=== PATIENT | male | born 1940 | race Caucasian/White ===

== ENCOUNTER 2023-02-16 | Inpatient (IN) | payer MEDICARE, OTHER, SELFPAY ==
[2023-02-16] VITALS (15 sets, daily range): BP systolic 107–141; BP diastolic 67–82; PULSE 60–90; RESP 14–22; TEMP 36.5–37.3; O2SAT 92–99
--- NOTE | 2023-02-16 00:04 | ECG_ITS ---
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 Measurements Intervals [place] Rate: 89 P: 0 CA: 0 QRS: 41 QRSD: 95 T: 78 QT: 349 QTc: 426 Interpretive Statements ATRIAL FIBRILLATION MODERATE ST DEPRESSION [0.05+ mV ST DEPRESSION] No previous ECG available for comparison Electronically Signed On 02-16-2023 10:13:50 CDT by Raul Berg M.D. [id number]
--- NOTE | 2023-02-16 00:04 | XRR_ITS ---
PROCEDURE INFORMATION: Exam: XR Chest Exam date and time: 02/16/2023 12:19 AM Age: 82 years old Clinical indication: Chest pressure; Patient HX: C/O chest pain; Additional info: Cp TECHNIQUE: Imaging protocol: Radiologic exam of the chest. Views: 1 view. COMPARISON: No relevant prior studies available. FINDINGS: Lungs: Mildly hyperaerated lungs consistent with deep inspiratory effort vs reactive airway disease vs mild COPD . Pleural spaces: Unremarkable. No pleural effusion. No pneumothorax. Heart/Mediastinum: Unremarkable. No cardiomegaly. Bones/joints: Unremarkable. XR/XR chest 1V portable [id number] IMPRESSION: Mildly hyperaerated lungs consistent with deep inspiratory effort vs reactive airway disease vs mild COPD .
--- NOTE | 2023-02-16 00:12 | ED_ITS ---
HPI - Chest Pain General: Chief Complaint: Chest Pain Stated Complaint: CP Time Seen by Provider: 02/16/23 00:04 History of Present Illness: 82-year-old gentleman with a history of atrial fibrillation, but no prior history of coronary disease. Who presents with chest discomfort. He notes that he had discomfort on and off for the past 5 days or so. He presented to an outside facility last night with similar symptoms, and was discharged. He was told he should have a stress test at some point. Tonight, after returning home from dinner, he began to get pain at rest. He tried to go to bed, but pain did not decrease at all with rest, and began to worry him so he came to the e mergency department. He was given nitroglycerin x2 by EMS in route, with resolution of his pain. He has no pain now. He states that he has had a stress test a long time ago that was negative but none recently. No history of angiogram. MD complaint: chest pain Pertinent past history: other Onset (ago): hour(s) Timing of current episode: episodic Prior episodes: Yes Onset: during rest Pain location: substernal Pain radiation: none Quality: aching Relieving factors: nitroglycerin Exacerbating factors: exertion Context: other Associated symptoms: Reports dyspnea and nausea; Deny abdominal pain, diaphoresis, fever(s), leg edema or vomiting Treatment prior to arrival: nitroglycerin Review of Systems Const: Denies: fever(s) or diaphoresis Eyes: Denies: change in vision ENMT: Denies: throat pain Card: Reports: chest pain Resp: Reports: dyspnea GI: Reports: nausea; Denies: abdominal pain or vomiting Musc: Reports: neck pain Physical Exam Const: COMMON NORMALS: no acute distress GENERAL APPEARANCE: cooperative; not ill appearing and not frail appearing HENMT: COMMON NORMALS: normocephalic, atraumatic and Normal external nose present HEAD & SCALP: normocephalic and atraumatic FACE & SINUS: normal facial exam and face symmetric NOSE: Normal external nose present Eye: COMMON NORMALS: Equal, round and reactive pupils present and EOMs intact bilaterally PUPIL: Yes Equal, round and reactive pupils present Neck/C-Spine: GENERAL: Yes trachea midline Chest: CHEST: Yes Symmetrical chest wall rise Resp: COMMON NORMALS: normal respiratory effort, No retractions, No use of accessory muscles and clear to auscultation bilaterally AUSCULTATION: clear to auscultation bilaterally Cardio: COMMON NORMALS: regular rate and regular rhythm RATE: regular rate RHYTHM: regular rhythm GI: COMMON NORMALS: Normal to inspection, nondistended, normoactive bowel sounds present Extremity: COMMON NORMALS: no pedal edema Neuro: ISAAC COMA SCALE: document GCS findings [place] coma scale eye opening: Spontaneous [place] coma scale verbal response: Orientated Isaac coma scale motor response: Obey commands [place] coma scale total score: 15 S ENSORY EXAM: Yes extremities (intact) Psych: COMMON NORMALS: speech normal SPEECH: Yes normal speech Skin: COMMON NORMALS: no rashes or lesions noted GENERAL SKIN EXAM: no rashes or lesions noted Course Vital Signs: Vital signs: Vital Signs Temperature 97.7 F 02/16/23 00:00 Pulse Rate 73 02/16/23 01:50 Respiratory Rate 16 02/16/23 01:50 Blood Pressure 113/74 02/16/23 01:50 Pulse Oximetry 97 02/16/23 01:50 Oxygen Delivery Me thod Room Air 02/16/23 00:39 MDM - Chest Pain Medical Decision Making Chest pain is still resolved. Patient is resting comfortably. Heart rate 90, blood pressure 97/62, saturations 98% on room air. EKG shows atrial fibrillat ion with a normal axis. Rate is 90. There is some ST depression laterally. Potassium is 3.3 and is repleted. Chest x-ray shows mildly hyperinflated lungs. The patient's delta troponin is 15 which is concerning given his chest pain and relief with nitroglycerin. The patient is fully anticoagulated on Eliquis, so Lovenox will not be necessary. He was given Plavix and aspirin in the emergency department. He will be observed. Hospitalist will see the patient. Lab Data 02/16/23 00:20 02/16/23 00:20 Radiology Impressions Chest X-Ray 02/16/23 00:04 IMPRESSION: Mildly hyperaerated lungs consistent with deep inspiratory effort vs reactive airway disease vs mild COPD . Laboratory Results WBC 10.3 10^3/uL (4.0-10.0) H 02/16/23 00:20 RBC 3.38 10^6/uL (4.1-5.3) L 02/16/23 00:20 Hgb 11.3 g/dL (11.7-16.6) L 02/16/23 00:20 Hct 33.5 % (42.0-52.0) L 02/16/23 00:20 MCV 99.1 fl (80-94) H 02/16/23 00:20 MCH 33.4 pg (28.0-34.0) 02/16/23 00:20 MCHC 33.7 g/dL (30.0-36.0) 02/16/23 00:20 RDW 14.2 % (12.1-15.1) 02/16/23 00:20 Plt Count 238 10^3/cmm (130-400) 02/16/23 00:20 MPV 12.2 fL (7.4-10.4) H 02/16/23 00:20 Neut % (Auto) 59.1 % 02/16/23 00:20 Lymph % (Auto) 23.6 % 02/16/23 00:20 Coleman % (Auto) 7.8 % 02/16/23 00:20 Eos % (Auto) 7.7 % 02/16/23 00:20 Baso % (Auto) 0.6 % 02/16/23 00:20 Neut # (Auto) 6.08 10^3/uL (1.8-7.7) 02/16/23 00:20 Lymph # (Auto) 2.4 10^3/uL (0.8-4.8) 02/16/23 00:20 Coleman # (Auto) 0.8 10^3/uL (0.2-0.9) 02/16/23 00:20 Eos # (Auto) 0.8 10^3/uL (0.0-0.8) 02/16/23 00:20 Baso # (Auto) 0.1 10^3/uL (0.0-0.1) 02/16/23 00:20 Nucleated RBC % (auto) 0 % 02/16/23 00:20 Nucleated RBCs # 0.0 /100WBC 02/16/23 00:20 Sodium 143 mmol/L (136-145) 02/16/23 00:20 Potassium 3.3 mmol/L (3.5-5.1) L 02/16/23 00:20 Chloride 106 mmol/L (98-107) 02/16/23 00:20 Carbon Dioxide 24 mmol/L (22-29) 02/16/23 00:20 Anion Gap 16.3 (5-19) 02/16/23 00:20 BUN 28 mg/dL (8-23) H 02/16/23 00:20 Creatinine 1.2 mg/dL (0.7-1.2) 02/16/23 00:20 GFR Calculation Not Reportable 02/16/23 00:20 Glucose 114 mg/dL (65-115) 02/16/23 00:20 Calculated Osmolality 302 mOsm/kg (285-295) H 02/16/23 00:20 Calcium 8.2 mg/dL (8.5-10.5) L 02/16/23 00:20 Total Bilirubin 0.5 mg/dL (0.15-1.2) 02/16/23 00:20 AST 19 U/L (0-40) 02/16/23 00:20 ALT 12 U/L (0-41) 02/16/23 00:20 Alkaline Phosphatase 61 U/L (40-130) 02/16/23 00:20 Troponin T Baseline 25 ng/L (0-15) H 02/16/23 00:20 Troponin T 120 Minute 40.21 ng/L (0-15) H 02/16/23 01:56 Delta Troponin T 15.21 ABS# (0-10) H* 02/16/23 01:56 NT-Pro-B Natriuret Pep 379 pg/mL (0-450) 02/16/23 00:20 Total Protein 5.7 g/dL (6.6-8.7) L 02/16/23 00:20 Albumin 3.5 g/dL (3.5-5.2) 02/16/23 00:20 Globulin 2.2 g/dL (1.3-4.6) 02/16/23 00:20 Discharge Plan Discharge Patient Disposition: Placed in Observation Clinical Impression: Chest pain, Non-ST elevated myocardial infarction (non-STEMI), Atrial fibrillation Coding Level of Care Code ED Flight Attendant for Ximena Cook
[2023-02-16 00:47] LABS: Basophils # 0.1 10^3/uL (0.0-0.1); Basophils % 0.6 %; Eosinophils # 0.8 10^3/uL (0.0-0.8); Eosinophils % 7.7 %; Hematocrit 33.5 % (42.0-52.0); Hemoglobin 11.3 g/dL (11.7-16.6); Lymphocytes # 2.4 10^3/uL (0.8-4.8); Lymphocytes % 23.6 %; Mean Corpuscular HGB Conc 33.7 g/dL (30.0-36.0); Mean Corpuscular Hemoglobin 33.4 pg (28.0-34.0); Mean Corpuscular Volume 99.1 fl (80-94); Mean Platelet Volume 12.2 fL (7.4-10.4); Monocytes # 0.8 10^3/uL (0.2-0.9); Monocytes % 7.8 %; Neutrophils # 6.08 10^3/uL (1.8-7.7); Neutrophils % 59.1 %; Nucleated Red Blood Cells % 0 %; Platelet Count 238 10^3/cmm (130-400); Red Blood Count 3.38 10^6/uL (4.1-5.3); Red Cell Distribution Width 14.2 % (12.1-15.1); White Blood Count 10.3 10^3/uL (4.0-10.0)
[2023-02-16 00:51] LABS: Troponin(5th) Baseline 25 ng/L (0-15)
[2023-02-16 01:00] LABS: Alanine Aminotransferase 12 U/L (0-41); Albumin Level 3.5 g/dL (3.5-5.2); Alkaline Phosphatase 61 U/L (40-130); Anion Gap 16.3 (5-19); Aspartate Amino Transferase 19 U/L (0-40); Blood Urea Nitrogen 28 mg/dL (8-23); Calcium 8.2 mg/dL (8.5-10.5); Carbon Dioxide 24 mmol/L (22-29); Chloride 106 mmol/L (98-107); Globulin 2.2 g/dL (1.3-4.6); Glucose 114 mg/dL (65-115); NT Pro B Type Natriuretic Pept 379 pg/mL (0-450); Osmolality Calculated 302 mOsm/kg (285-295); Potassium 3.3 mmol/L (3.5-5.1); Sodium 143 mmol/L (136-145); Total Bilirubin 0.5 mg/dL (0.15-1.2); Total Protein 5.7 g/dL (6.6-8.7)
--- NOTE | 2023-02-16 02:04 | ECG_ITS ---
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 Measurements Intervals [place] Rate: 67 P: 0 [place]: 0 QRS: 63 QRSD: 96 T: 81 QT: 373 QTc: 394 Interpretive Statements ATRIAL FIBRILLATION MODERATE ST DEPRESSION [0.05+ mV ST DEPRESSION] Compared to ECG 02/16/2023 00:04:52 No significant changes Electronically Signed On 02-16-2023 10:14:16 CDT by Raul Berg M.D. [id number]
[2023-02-16 02:16] LABS: Troponin 5 2HR 40.21 ng/L (0-15)
[2023-02-16 02:25] LABS: Troponin 5 2HR Delta 15.21 ABS# (0-10)
[2023-02-16] MEDS: potassium chloride ER 20 mEq Tablet 40 MEQ PO (02:44)
[2023-02-16] MEDS: clopidogrel 300 mg Tablet PO (03:16)
[2023-02-16] MEDS: aspirin 325 mg Tablet PO ×2 (03:16→14:10)
--- NOTE | 2023-02-16 03:38 | USCV_ITS ---
Brian Chavez Age: 82 Gender: M : 1940 Exam Date: 02/16/2023 14:02 Ordering Phys: Coby Chase MD Technologist: DINA [place] [facility] [place]: nstemi BP: / HR: 56 Rhythm: Sinus Technical Quality: Adequate MEASUREMENTS (Male / Female) Normal Values 2D ECHO LV Diastolic Diameter PLAX 5.9 cm 4.2 - 5.9 / 3.9 - 5.3 cm LV Systolic Diameter PLAX 3.8 cm IVS Diastolic Thickness 0.9 cm 0.6 - 1.0 / 0.6 - 0.9 cm IVS Systolic Thickness 1.0 cm LVPW Diastolic Thickness 0.7 cm 0.6 - 1.0 / 0.6 - 0.9 cm LVPW Systolic Thickness 1.1 cm LVOT Diameter 2.3 cm LV Ejection Fraction 2D Teich 63.9 % LV Ejection Fraction MOD 2C 36.5 % LV Ejection Fraction 2C AL 35.6 % LA Diameter 4.3 cm M-MODE Aortic Annulus Diameter 3.5 cm LA Ao Ratio MM 1.3 MV E Point Septal Separation 0.7 cm DOPPLER AV Peak Velocity 116.0 cm/s LVOT Peak Velocity 69.0 cm/s AV Area Cont Eq vti 2.7 cm squared AV Area Cont Eq pk 2.5 cm squared MV Area PHT 6.9 cm squared Mitral E to A Ratio 2.4 MV E' Velocity 54.0 cm/s Mitral E to MV E' Ratio 8.2 Mitral E to LV E' Lateral Ratio 8.0 Mitral E to LV E' Septal Ratio 8.6 TR Peak Velocity 218.7 cm/s TR Peak Gradient 19.1 mmHg TV Peak E Velocity 65.0 cm/s Right Atrial Pressure 6.0 mmHg Pulmonary Artery Systolic Pressu 25.1 mmHg PV Peak Velocity 73.0 cm/s FINDINGS Left Ventricle Left ventricle is normal in size. LV systolic function is normal with EF 55-60%. No regional wall motion abnormalities are seen Right Ventricle Normal in size and function Right Atrium Normal in size Left Atrium Dilated Mitral Valve Structurally normal mitral valve.Trace mitral regurgitation. Aortic Valve Structurally normal aortic valve. No significant stenosis or regurgitation. Tricuspid Valve Mild tricuspid regurgitation. Insufficient TR jet to calculate RVSP Pulmonic Valve Not well visualized Pericardium Normal Aorta Normal in size IVC Appears to be normal CONCLUSIONS LV systolic function is normal with EF of 55 to 60%. Left atrial dilation Trace mitral regurgitation Mild tricuspid regurgitation No comparison studies are available Raul Berg MD (Electronically Signed) Final Date: 17 February 2023 08:38 S
--- NOTE | 2023-02-16 03:45 | PM.HP ---
Providers/Chief Complaint Admitting Physician: Coby Chase MD Primary Care Provider: Eddie Colon MD Chief Complaint: CP History of Present Illness Brian Chavez is a 82 year old male with a past medical history of hypertension, A-fib, currently on Eliquis, presented to the emergency room with 1 week of intermittent chest pain. Patient states he first noticed his chest pain 1 week ago with some minimal exertion. Chest pain was felt as a central pressure, located in the middle of the chest, nonradiating, no associated symptoms, 7/10 intensity at its peak. Rest appears to relieve his pain. This has been happening intermittently with exertion over the past 1 week. He does not have a past history of CAD. He had a stress test several years ago which was essentially normal. He presented to outside hospital yesterday for similar complaints and was discharged after their initial evaluation. He was asked to undergo a stress test order urgently. Today his pain continued to intensify so he came to the ER again. He received nitroglycerin x2 via EMS which caused relief of the pain. Review of Systems General: Reports: 10 or more systems reviewed and unremarkable except in HPI and below Const: Denies: fever(s), chills or body aches Eyes: Denies: change in vision, blurry vision or photophobia ENMT: Reports: hoarseness; Denies: throat pain, enlarged tonsils, odynophagia or nasal congestion Card: Denies: chest pain, palpitations, irregular heart rhythm, edema, swelling of feet/ankles, lightheadedness, pre-syncope, dyspnea on exertion or orthopnea Resp: Denies: dyspnea, productive cough, non-productive cough, wheezing, stridor, pain on inspiration, change in phlegm color, hemoptysis or chest congestion GI: Denies: abdominal pain, nausea, vomiting, hematemesis, coffee ground emesis, dysphagia, heartburn, diarrhea, constipation, GI cramping, change in stool character, hematochezia or melena : Denies: flank pain, dysuria, urinary frequency, urinary urgency, urinary hesitancy or hematuria Musc: Denies: neck pain, back pain, extremity pain, joint swelling, joint warmth or deformity Neuro: Denies: headache(s), numbness in extremities, weakness in extremities, sensory changes, difficulty walking, frequent falls, dizziness, vertigo, behavioral changes, Slurred speech present or seizure-like activity Psych: Denies: anxiety, depression, suicidal ideation or homicidal ideation Endo: Denies: polyuria, polydipsia, tired all the time, cold intolerance or hot flashes Blake/Lymph: Denies: easy bruising or easy bleeding Medications/Allergies Home Medications Medication Instructions Recorded Confirmed Last Taken Type apixaban 5 mg tablet (Eliquis) 5 mg PO BID 02/16/23 02/16/23 Unknown History cetirizine 10 mg tablet 10 mg PO DAILY 02/16/23 02/16/23 Unknown History diltiazem HCl 360 mg 360 mg PO BEDTIME 02/16/23 02/16/23 Unknown History capsule,extended release 24 hr dorzolamide 22.3 mg-timolol 6.8 1 drp ophthalmic (eye) DAILY 02/16/23 02/16/23 Unknown History mg/mL eye drops hydrochlorothiazide 12.5 mg capsule 12.5 mg PO DAILY 02/16/23 02/16/23 Unknown History ibuprofen 200 mg tablet 200 mg PO Q6H PRN Pain 02/16/23 02/16/23 Unknown History irbesartan 150 mg tablet 150 mg PO BEDTIME 02/16/23 02/16/23 Unknown History lansoprazole 15 mg capsule,delayed 15 mg PO DAILY 02/16/23 02/16/23 Unknown History release (Prevacid 24Hr) latanoprost 0.005 % eye drops 1 drp ophthalmic (eye) BEDTIME 02/16/23 02/16/23 Unknown History multivit,Ca,min-iron 8 mg-folic 1 tab PO DAILY 02/16/23 02/16/23 Unknown History acid 200 mcg-lycopene 600 mcg tablet (Centrum Men) ondansetron 4 mg disintegrating 4 mg PO Q8H PRN Nausea 02/16/23 02/16/23 Unknown History tablet potassium chloride 10 mEq 20 meq PO DAILY 02/16/23 02/16/23 Unknown History capsule,extended release terazosin 10 mg capsule 10 mg PO DAILY 02/16/23 02/16/23 Unknown History tramadol 50 mg tablet 50 mg PO DAILY PRN Pain 02/16/23 02/16/23 Unknown History vit C 250 mg-vit E 90 mg-zinc 40 1 cap PO DAILY 02/16/23 02/16/23 Unknown History mg-copper 1 [id number] capsule (PreserVision AREDS-2) Allergies Allergy/AdvReac Type Severity Reaction Status Date / Time No Known Allergies Allergy Verified 02/16/23 00:06 Vitals/I&O/Wt Last Vital Signs Temp 97.8 F 02/16/23 03:37 Pulse 65 02/16/23 03:37 Resp 18 02/16/23 03:37 BP 120/67 02/16/23 03:37 Pulse Ox 99 02/16/23 03:37 O2 Del Method Room Air 02/16/23 03:37 Weight last 48 hrs Weight 81.647 kg Physical Exam Narrative: General: No acute distress, AO x3 HEENT: PERRLA, pupils bilaterally equal and reactive, pallors not present Chest: Normal vesicular breath sounds, no added sounds, equal good air entry bilaterally CVS: S1-S2 regular, no murmurs, no tachycardia, no gallops, no rubs Abdomen: Soft, nontender, no organomegaly, bowel sounds present Neuro: No focal deficits, no facial deformity, AO x3, power 5/5 in all limbs Data 02/16/23 00:20 02/16/23 00:20 A&P Assessment and plan (1) Non-ST elevated myocardial infarction (non-STEMI): Patient presenting today with intermittent chest pain over the past week which is concerning for anginal type chest pain. EKG shows a baseline A-fib which is currently rate controlled, mild ST depression in leads V4 through V6. Baseline troponin is at 25, trending up at 2 hours to 40 with a delta of 15. He received nitroglycerin via EMS which appears to have relieved his chest pain. Currently he has no pain while laying in bed. Admit patient to CSU, continuous telemetry monitoring Start Lovenox 1 mg/kg every 24 hours Hold Eliquis in case patient needs to proceed to [employer], last dose was taken Friday evening. He has received aspirin 325 mg, will continue with 81 mg p.o. daily. Add atorvastatin 40 mg p.o. daily Check echocardiogram. Cardiology consult. N.p.o. for now while pending 6-hour troponin trend. (2) Atrial fibrillation: Currently rate controlled Continue home dose of Cardizem ER 360 mg daily Eliquis on hold as above Attestations Medical Necessity Statement*: Anticipate greater than 2 midnight stay for the evaluation of management of NSTEMI Coding Level of Care Code Acute Code for [facility] Diagnoses Non-ST elevated myocardial infarction (non-STEMI) I21.4 Atrial fibrillation I48.91
[2023-02-16] MEDS: enoxaparin 80 mg/0.8 mL Syringe SUBCUT ×2 (05:51→17:14)
--- NOTE | 2023-02-16 06:04 | ECG_ITS ---
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 Measurements Intervals [place] Rate: 61 P: 0 [place]: 0 QRS: 55 QRSD: 93 T: 81 QT: 379 QTc: 382 Interpretive Statements ATRIAL FIBRILLATION MODERATE ST DEPRESSION [0.05+ mV ST DEPRESSION] Compared to ECG 02/16/2023 04:16:06 No significant changes Electronically Signed On 02-16-2023 10:14:07 CDT by Raul Berg M.D. [id number]
[2023-02-16 07:48] LABS: Troponin 5 6HR 71.41 ng/L (0-15)
[2023-02-16 08:03] LABS: Troponin 5 6HR Delta 46.41 ng/L (0-12)
--- NOTE | 2023-02-16 08:10 | PM.CONSULT ---
Providers/Reason For Consult Consulting Physician/Specialty*: Raul Berg MD/ Cardiology Reason for Consult*: NSTEMI Requesting Physician: Dr Chase Attending Physician: Coby Chase MD Primary Care Provider: Eddie Colon MD History of Present Illness History of Present Illness Brian Chavez is a 82 year old male with past medical history of atrial fibrillation on Eliquis, hypertension who presented to hospital with 2 weeks of on and off chest pain that worsened yesterday. He was found to have elevated troponin with baseline of 25 trending up to 71 at 6 hours. EKG shows atrial fibrillation with minimal diffuse ST depressions. No active chest pain. Review of Systems General: Reports: 10 or more systems reviewed and unremarkable except in HPI and below Const: Denies: fever(s), chills or body aches Eyes: Denies: change in vision, blurry vision or photophobia ENMT: Reports: hoarseness; Denies: throat pain, enlarged tonsils, odynophagia or nasal congestion Card: Reports: chest pain; Denies: palpitations, irregular heart rhythm, edema, swelling of feet/ankles, lightheadedness, pre-syncope, dyspnea on exertion or orthopnea Resp: Denies: dyspnea, productive cough, non-productive cough, wheezing, stridor, pain on inspiration, change in phlegm color, hemoptysis or chest congestion GI: Denies: abdominal pain, nausea, vomiting, hematemesis, coffee ground emesis, dysphagia, heartburn, diarrhea, constipation, GI cramping, change in stool character, hematochezia or melena : Denies: flank pain, dysuria, urinary frequency, urinary urgency, urinary hesitancy or hematuria Musc: Denies: neck pain, back pain, extremity pain, joint swelling, joint warmth or deformity Neuro: Denies: headache(s), numbness in extremities, weakness in extremities, sensory changes, difficulty walking, frequent falls, dizziness, vertigo, behavioral changes, Slurred speech present or seizure-like activity Psych: Denies: anxiety, depression, suicidal ideation or homicidal ideation Endo: Denies: polyuria, polydipsia, tired all the time, cold intolerance or hot flashes Blake/Lymph: Denies: easy bruising or easy bleeding Medications/Allergies Home Medications Medication Instructions Recorded Confirmed Last Taken Type apixaban 5 mg tablet (Eliquis) 5 mg PO BID 02/16/23 02/16/23 Unknown History cetirizine 10 mg tablet 10 mg PO DAILY 02/16/23 02/16/23 Unknown History diltiazem HCl 360 mg 360 mg PO BEDTIME 02/16/23 02/16/23 Unknown History capsule,extended release 24 hr dorzolamide 22.3 mg-timolol 6.8 1 drp ophthalmic (eye) DAILY 02/16/23 02/16/23 Unknown History mg/mL eye drops hydrochlorothiazide 12.5 mg capsule 12.5 mg PO DAILY 02/16/23 02/16/23 Unknown History ibuprofen 200 mg tablet 200 mg PO Q6H PRN Pain 02/16/23 02/16/23 Unknown History irbesartan 150 mg tablet 150 mg PO BEDTIME 02/16/23 02/16/23 Unknown History lansoprazole 15 mg capsule,delayed 15 mg PO DAILY 02/16/23 02/16/23 Unknown History release (Prevacid 24Hr) latanoprost 0.005 % eye drops 1 drp ophthalmic (eye) BEDTIME 02/16/23 02/16/23 Unknown History multivit,Ca,min-iron 8 mg-folic 1 tab PO DAILY 02/16/23 02/16/23 Unknown History acid 200 mcg-lycopene 600 mcg tablet (Centrum Men) ondansetron 4 mg disintegrating 4 mg PO Q8H PRN Nausea 02/16/23 02/16/23 Unknown History tablet potassium chloride 10 mEq 20 meq PO DAILY 02/16/23 02/16/23 Unknown History capsule,extended release terazosin 10 mg capsule 10 mg PO DAILY 02/16/23 02/16/23 Unknown History tramadol 50 mg tablet 50 mg PO DAILY PRN Pain 02/16/23 02/16/23 Unknown History vit C 250 mg-vit E 90 mg-zinc 40 1 cap PO DAILY 02/16/23 02/16/23 Unknown History mg-copper 1 [id number] capsule (PreserVision AREDS-2) Allergies Allergy/AdvReac Type Severity Reaction Status Date / Time No Known Allergies Allergy Verified 02/16/23 00:06 Vitals/I&O/Wt Last Vital Signs Temp 97.9 F 02/16/23 07:36 Pulse 80 02/16/23 07:36 Resp 16 02/16/23 07:36 BP 136/78 02/16/23 07:36 Pulse Ox 98 02/16/23 07:36 O2 Del Method Room Air 02/16/23 07:36 02/15/23 02/16/23 02/16/23 22:59 06:59 14:59 Intake Total 800 / 800 Balance 800 / 800 Weight last 48 hrs Weight 180 lb Physical Exam Narrative: GENERAL: Patient is alert, awake and oriented x3. [] NECK: No jugular vein distension. [] HEENT: No cyanosis. No icterus. No pallor. [] HEART: Regular S1 and S2. No murmur, rub or gallop. [] LUNGS: Clear to auscultate bilaterally. [] CENTRAL NERVOUS SYSTEM: Grossly nonfocal. [] EXTREMITIES: Lower extremities with no edema Data 02/17/23 03:52 02/17/23 03:52 A&P Assessment and plan (1) Non-ST elevated myocardial infarction (non-STEMI): (2) Atrial fibrillation: Plan Patient has presented with non-ST elevation IN. We will proceed with coronary angiogram with possible percutaneous coronary intervention. His last dose of Eliquis was yesterday, we will wait till tomorrow. N.p.o. past midnight. Continue aspirin. Continue anticoagulation with Lovenox. Order echocardiogram. Thank you for involving us with care of this patient. We will continue to follow. Please call with questions. Consult Attestations Medical Necessity Statement: Care expected to cross 2 midnights. Coding Level of Care Code Acute Code for [facility] Diagnoses Non-ST elevated myocardial infarction (non-STEMI) I21.4 Atrial fibrillation I48.91
[2023-02-16] MEDS: pantoprazole DR 40 mg Tablet PO (09:27)
[2023-02-16] MEDS: atorvastatin 40 mg Tablet PO (09:28)
[2023-02-16] MEDS: terazosin 5 mg Capsule 10 MG PO (09:28)
[2023-02-16] MEDS: aspirin 81 mg EC Tablet PO (09:28)
--- NOTE | 2023-02-16 16:33 | P.PN_ITS ---
Subjective Subjective: Patient was seen this morning, family was at bedside, cardiology at bedside, spoke to cardiology, spoke to patient, patient denies any chest pain this morning, plans on coronary angiography tomorrow Vitals/I&O/Wt Last Vital Signs Temp 97.9 F 02/16/23 11:06 Pulse 60 02/16/23 15:58 Resp 16 02/16/23 15:58 BP 123/70 02/16/23 15:58 Pulse Ox 96 02/16/23 15:58 O2 Del Method Room Air 02/16/23 15:58 02/16/23 02/16/23 02/16/23 06:59 14:59 22:59 Intake Total 800 / 800 Balance 800 / 800 Weight last 48 hrs Weight 81.647 kg Physical Exam Const: COMMON NORMALS: no acute distress and patient oriented x3 Resp: COMMON NORMALS: normal respiratory effort, No retractions, No use of accessory muscles and clear to auscultation bilaterally AUSCULTATION: clear to auscultation bilaterally Cardio: COMMON NORMALS: regular rate, regular rhythm, S1 normal heart sound present and S2 normal heart sound present RATE: regular rate RHYTHM: regular rhythm HEART SOUNDS: S1 normal heart sound present and S2 normal heart sound present GI: COMMON NORMALS: Normal to inspection, nondistended, normoactive bowel so unds present, Soft to palpation and non-tender PALPATION: Yes Soft to pal pation Extremity: COMMON NORMALS: no pedal edema Neuro: COMMON NORMALS: patient oriented x3 Psych: COMMON NORMALS: mental status grossly normal Data 02/16/23 00:20 02/16/23 00:20 A&P Assessment and plan (1) Non-ST elevated myocardial infarction (non-STEMI): Patient presenting today with intermittent chest pain over the past week which is concerning for anginal type chest pain. EKG shows a baseline A-fib which is currently rate controlled, mild ST depression in leads V4 through V6. Baseline troponin is at 25, trending up at 2 hours to 40 with a delta of 15. 6- hour of 71, delta 46 He received nitroglycerin via EMS which appears to have relieved his chest pain. Currently chest pain-free Admit patient to CSU, continuous telemetry monitoring Continue Lovenox 1 mg/kg every 24 hours Hold Eliquis resume on discharge He has received aspirin 325 mg, will continue with 81 mg p.o. daily. Add atorvastatin 40 mg p.o. daily Check echocardiogram. Cardiology consult. N.p.o. midnight for cardiac cath tomorrow morning (2) Atrial fibrillation: Currently rate controlled Continue home dose of Cardizem ER 360 mg daily Eliquis on hold as above Plan Plan for today monitor for chest pain monitor quality assurance monitor final clinically, plan for cardiac catheterization tomorrow morning, spoke to patient, spoke to , spoke to nursing staff, spoke to cardiology Attestations Medical Necessity Statement*: Patient requires hospitalization for NSTEMI, plans on coronary angiography Diagnoses Non-ST elevated myocardial infarction (non-STEMI) I21.4 Atrial fibrillation I48.91
[2023-02-16] MEDS: dilTIAZem ER (24HR) 180 mg Capsule 360 MG PO (20:03)
[2023-02-16] MEDS: morphine 4 mg/mL SDV 1 mL 2 MG IVP (21:30)
[2023-02-17] VITALS (9 sets, daily range): BP systolic 130–150; BP diastolic 68–96; PULSE 61–84; RESP 16–24; TEMP 36.8; O2SAT 90–97
[2023-02-17 04:40] LABS: Basophils # 0.1 10^3/uL (0.0-0.1); Basophils % 0.7 %; Eosinophils # 0.9 10^3/uL (0.0-0.8); Eosinophils % 8.4 %; Hematocrit 32.1 % (42.0-52.0); Lymphocytes # 2.8 10^3/uL (0.8-4.8); Lymphocytes % 27.3 %; Mean Corpuscular HGB Conc 34.3 g/dL (30.0-36.0); Mean Corpuscular Hemoglobin 34.2 pg (28.0-34.0); Mean Corpuscular Volume 99.7 fl (80-94); Mean Platelet Volume 12.5 fL (7.4-10.4); Monocytes # 0.9 10^3/uL (0.2-0.9); Monocytes % 8.6 %; Neutrophils # 5.51 10^3/uL (1.8-7.7); Neutrophils % 53.7 %; Nucleated Red Blood Cells % 0.2 %; Platelet Count 212 10^3/cmm (130-400); Red Blood Count 3.22 10^6/uL (4.1-5.3); Red Cell Distribution Width 14.2 % (12.1-15.1); White Blood Count 10.3 10^3/uL (4.0-10.0)
[2023-02-17 05:13] LABS: Alanine Aminotransferase 11 U/L (0-41); Albumin Level 3.2 g/dL (3.5-5.2); Alkaline Phosphatase 50 U/L (40-130); Anion Gap 11.8 (5-19); Aspartate Amino Transferase 17 U/L (0-40); Blood Urea Nitrogen 23 mg/dL (8-23); Calcium 8.4 mg/dL (8.5-10.5); Carbon Dioxide 26 mmol/L (22-29); Chloride 107 mmol/L (98-107); Globulin 2.1 g/dL (1.3-4.6); Glucose 77 mg/dL (65-115); Osmolality Calculated 294 mOsm/kg (285-295); Potassium 3.8 mmol/L (3.5-5.1); Sodium 141 mmol/L (136-145); Total Bilirubin 0.6 mg/dL (0.15-1.2); Total Protein 5.3 g/dL (6.6-8.7)
[2023-02-17] MEDS: sodium chloride 0.9% 1,000 ML 50 ML IV (05:45)
--- NOTE | 2023-02-17 06:18 | XACV_ITS ---
Exam Room: 2 Ht: 170 cm Wt: 82 kg BSA: 1.98 m2 Gender: Male : 1940 Any Known Allergies: No known allergies Exam Priority: Routine Procedure(s): Procedure Description: Diagnostic procedure Procedure Description: Left Heart Catheterization Procedure Description: Coronary Angiography Diagnostic Cath Status: Elective Diagnostic Findings * INDICATION: 82 year old male with past medical history of atrial fibrillation on Eliquis, hypertension who presented to hospital with 2 weeks of on and off chest pain that worsened yesterday. He was found to have elevated troponin with baseline of 25 trending up to 71 at 6 hours. EKG shows atrial fibrillation with minimal diffuse ST depressions. No active chest pain.. * Left Main has no significant disease. * Proximal Left Anterior Descending: significant 80% calcified stenosis, VALERIO: 3 flow. * Mid Left Anterior Descending: severe 90% calcified stenosis, VALERIO: 3 flow. First diagonal artery is medium sized vessel and has a 70% stneosis. * Mid Circumflex: severe 90% calcified stenosis, VALERIO: 3 flow. * Posterior Descending Right: significant 80% stenosis, VALERIO: 3 flow. Small sized vessel. * Coronary angiography shows right dominance. Interventional Findings * Procedure detail: We had a discussion with the patient's family after diagnostic angiogram giving all options. Initially plan was to perform PCI of the circumflex artery and LAD. We wired the left circumflex artery however balloon could not cross the stenosis because of heavy calcification. Given multiple stenosis and heavy calcification, decision was made to send him for a coronary artery bypass surgery and PCI was aborted. Conclusions 1. Severe multivessel coronary artery disease. 2. Brief attempt at PCI of left circumflex artery done however 3. because of calcification, balloon was not crossable. Patient will be referred for coronary artery bypass surgery. Recommendations * We will transfer patient to tertiary care center for coronary artery bypass surgery. * Continue aspirin. Restart heparin. Interventional RX Recommendation: CABG Diagnostic RX Recommendation: CABG Anticoagulation: Heparin Pressures Phase:Rest AO : 91 / 69 ( 82 ) @ 8:43:00 AM 101 / 71 ( 81 ) @ 9:00:00 AM Clinical Evaluation EBL: 5mL-10mL Procedural Details Procedure Consent Obtained. Admit Source: In Patient. Pre-Procedure Time Out. Identified patient by full name and date of as verbalized by the patient/guarantor. Does the consent match the physician's order: Yes. Accurate & Complete Informed Consent: Yes. Inpatient/Outpatient History & Physical on Chart: Yes. If H&P is completed, is and addenduem needed: No; If yes, is the addendum complete: N/A. Visualize and Verify Site with Patient/Guarantor: N/A. Relevant Radiology Images available: N/A. The risks, benefits, and alternatives of sedation and/or procedure were discussed by physician. The patient agrees to continue. Procedure started. Kelsey Campos RN was relieved by Ninoska Sandoval RN as monitoring person. [facility] Clinical Fraility Score: 3: Managing Well. Broom Maker Indications: New Onset Angina. Chest Pain Symptom Assessment: Typical Angina Symptoms. Correct patient, site and procedure confirmed by cath team. Current diagnosis: NSTEMI. PERRLA. Strong, equal hand pitch worker bilaterally. Lungs clear x 5 lobes. IV Site on Arrival: 18 gauge in the left anticubital. IV Fluids: 0.9% NaCl at KVO. 100 mL infused prior to manufacturing lab technician. Pre Procedural Pulses: right radial was 2+. Oxygen started at 2liters/min via nasal canula. right groin was prepped with chloroprep then draped in the usual sterile fashion. right radial was prepped with chloroprep then draped in the usual sterile fashion. Physician notified. Baseline sample Acquired. HR: 61 BPM. Physician arrived. Physician scrubbed in. Immediate Pre-Procedure Time Out. Correct Patient: Yes; Correct Procedure: Yes; Correct Site: Yes; Correct Patient Position: Yes; Correct Supplies: Yes; Dried Flammable Prep: Yes; Blood Products Available: N/A;. Lidocaine 1% infiltrated to the right radial. Arterial access obtained. A 5 qatari TIG catheter in over wire. Multiple views taken of left coronary artery. Catheter redirected to the RCA. Multiple views taken of right coronary artery. Catheter removed over the exchange wire. Physician review of cine films. Patient's family updated. 6 qatari XB 3 guide catheter was inserted over the wire. Runthrough guidewire was advanced through the guide catheter to lesion in the mid Circ. Balloon inserted to lesion in the mid Circ. Unable to advance 2.5x12mm balloon across lesion. Balloon out over wire. Balloon inserted to lesion in the mid Circ. Unable to advance 2.0x12mm balloon across lesion. Balloon out over wire. Wire and catheter out. A TR Band was successful obtaining hemostatsis at the Right Radial artery insertion site. Post Procedure: Pulses reassessed and unchanged. PERRLA. Strong, equal hand pitch worker bilaterally. No VTE prophylaxis required. Medication's Wasted: Heparin = 3000u. Medication's Wasted: Lidocaine 1% = 1 mL. Medication's Wasted: Nitro = 49.8 mg. Medication's Wasted: Other = Fentanyl 50 mcg. Total IV fluids: 50 mL. Post-op diagnosis: Severe Multi Vessel CAD. Complications: none. Estimated blood loss: 5mL-10mL. Responsiveness - Normal response to verbal stimuli; alert and oriented, PERRLA. Airway - Unaffected, no intervention required; spontaneous ventilation. Circulation: W/N/L, pulses unchanged. Nausea/Vomiting: No. Procedure completed. Patient transferred by wheelchair to CPRU. Vital chart was stopped. Access Site Site: Right Radial artery Sheath Size: 6 Fr Hemostasis Method: TR Band Hemostasis Success: Successful Procedure Medications Start: 7:34 AM Stop: 7:34 AM Medication: Versed Amount: 1 mg Route: I.V. Start: 7:34 AM Stop: 7:34 AM Medication: Fentanyl Amount: 50 mcg Route: I.V. Start: 7:41 AM Stop: 7:41 AM Medication: Nitrogylcerin Amount: 200 mcg Route: I.A. Start: 7:42 AM Stop: 7:42 AM Medication: Heparin Amount: 5000 units Route: I.V. Start: 7:48 AM Stop: 7:48 AM Medication: Versed Amount: 1 mg Route: I.V. Start: 8:00 AM Stop: 8:00 AM Medication: Heparin Amount: 3000 units Route: I.V. I, the attending physician, have reviewed and verified all procedure medications. Yes, all medications given per verbal order History/Risk Factors Hypertension: Yes Dyslipidemia: No Peripheral Arterial Disease (PAD): No Myocardial Infarction (PA): No Obesity: No Renal Disease: No Prior Interventions PCI: No CABG: No Valve Surgery: No Report Signatures Finalized by Raul Berg MD on 02/23/2023 01:32 PM
--- NOTE | 2023-02-17 07:35 | W.PM.OPSUD ---
Surgery/Procedure H&P Update DATE OF PROCEDURE: February 17, 2023 DATE H&P PERFORMED: 02/16/23 H&P UPDATE INFORMATION: I have reviewed H&P completed within last 30 days, I have examined patient prior to procedure and No changes to prior documentation PREOP DIAGNOSIS: NSTEMI PRIMARY INDICATION FOR PROCEDURE: NSTEMI PLANNED PROCEDURE: Left heart cath with possible percutaneous coronary intervention PATIENT REASSESSED PRIOR TO SEDATION, WITH NO CHANGE NOTED: Yes PHYSICAL EXAM: alert, oriented x 3 and clear to auscultation bilaterally OTHER PERTINENT EXAM FINDINGS: Irregularly irregular AIRWAY EVAL/ANESTHESIA PLAN: normal airway, ASA III, Local Anesthesia, Risks, benefits & alternatives of sedation and/or procedure discussed and Patient agrees to continue as planned ADDITIONAL INFORMATION: Moderate sedation
--- NOTE | 2023-02-17 08:33 | PM.PN ---
Subjective Subjective: Patient is chest pain free. He underwent coronary angiogram that showed multivessel CAD. We briefly attempted to perform PCI of left circumflex artery and LAD. However circumflex stenosis was very calcified and was not balloon crossable. Given all vessels are heavily calcified, we decided to abort PCI and transfer him for coronary artery bypass surgery. This was discussed with the family. Vitals/I&O/Wt Last Vital Signs Temp 98.3 F 02/17/23 03:44 Pulse 65 02/17/23 04:00 Resp 17 02/17/23 03:44 BP 130/68 02/17/23 03:44 Pulse Ox 90 02/17/23 03:44 O2 Del Method Room Air 02/17/23 03:44 02/16/23 02/17/23 02/17/23 22:59 06:59 14:59 Intake Total 360 / 360 0 / 360 Balance 360 / 360 0 / 360 Weight last 48 hrs Weight 180 lb Physical Exam Narrative: GENERAL: Patient is alert, awake and oriented x3. [] NECK: No jugular vein distension. [] HEENT: No cyanosis. No icterus. No pallor. [] HEART: Regular S1 and S2. No murmur, rub or gallop. [] LUNGS: Clear to auscultate bilaterally. [] CENTRAL NERVOUS SYSTEM: Grossly nonfocal. [] EXTREMITIES: Lower extremities with no edema Data 02/17/23 03:52 02/17/23 03:52 A&P Assessment and plan (1) Non-ST elevated myocardial infarction (non-STEMI): (2) Atrial fibrillation: Plan Patient has multivessel CAD. He has severe: Calcified proximal LAD, severe calcified mid LAD and severe mid left circumflex artery stenosis. After discussion with family initially we decided to perform PCI. However left circumflex artery stenosis was balloon uncrossable. Decision was made to abort PCI and transfer for a CABG. Continue aspirin. ECHO shows normal LV systolic function. Thank you for involving us with care of this patient. We will continue to follow. Please call with questions. Attestations Medical Necessity Statement*: Care expected to cross 2 midnights. Coding Level of Care Code Acute Code for [facility] Diagnoses Non-ST elevated myocardial infarction (non-STEMI) I21.4 Atrial fibrillation I48.91
[2023-02-17] MEDS: terazosin 5 mg Capsule 10 MG PO (08:46)
[2023-02-17] MEDS: pantoprazole DR 40 mg Tablet PO (08:46)
[2023-02-17] MEDS: atorvastatin 40 mg Tablet PO (08:47)
[2023-02-17] MEDS: aspirin 81 mg EC Tablet PO (08:47)
[2023-02-17] MEDS: acetaminophen 325 mg Tablet 650 MG PO (10:53)
--- NOTE | 2023-02-17 14:18 | PC.NURSE ---
Notified doctor Pt HR is 123, She is restless, ativan as prn order. bp 115/80. she verbalizes some words but unable to fully converse. she has hard time getting her phlegm out. Spo2-92% on 4 L. updated result on her [address] Baker came at bedside and talk to the and other family members regarding result of her 2 pm blood draw. stated he does not want her to suffer and want her comfortable. Dr baker is Ok to give her morphine for air hunger and ok to give atropine drop for secretions. dr verbal orders to not give albumin and hydrocortisone ordered at 2 pm. is made aware that pt is too lethargic to take oral pills. stated he will adjust the meds.
--- NOTE | 2023-02-17 16:26 | P.PN_ITS ---
Subjective Subjective: Patient was seen this morning, he underwent coronary angiography, was found to have multivessel CAD, will be transferred to tertiary level center for CABG, patient is agreeable, awaiting bed, currently chest pain-free Vitals/I&O/Wt Last Vital Signs Temp 98.3 F 02/17/23 03:44 Pulse 67 02/17/23 11:46 Resp 16 02/17/23 11:46 BP 131/85 02/17/23 11:46 Pulse Ox 97 02/17/23 11:46 O2 Del Method Room Air 02/17/23 11:46 02/17/23 02/17/23 02/17/23 06:59 14:59 22:59 Intake Total 0 / 360 360 / 360 Balance 0 / 360 360 / 360 Weight last 48 hrs Weight 81.647 kg Physical Exam Const: COMMON NORMALS: no acute distress and patient oriented x3 Resp: COMMON NORMALS: normal respiratory effort, No retractions, No use of a ccessory muscles and clear to auscultation bilaterally AUSCULTATION: clear to auscultation bilaterally Cardio: COMMON NORMALS: regular rate, regular rhythm, S1 normal heart sound present and S2 normal heart sound present RATE: regular rate RHYTHM: regular rhythm HEART SOUNDS: S1 normal heart sound present and S2 normal heart sound present GI: COMMON NORMALS: Normal to inspection, nondistended, normoactive bowel sounds present and non-tender Extremity: COMMON NORMALS: no pedal edema Neuro: COMMON NORMALS: patient oriented x3 Psych: COMMON NORMALS: mental status grossly normal Data 02/17/23 03:52 02/17/23 03:52 A&P Assessment and plan (1) Non-ST elevated myocardial infarction (non-STEMI): Patient presenting today with intermittent chest pain over the past week which is concerning for anginal type chest pain. EKG shows a baseline A-fib which is currently rate controlled, mild ST depression in leads V4 through V6. Baseline troponin is at 25, trending up at 2 hours to 40 with a delta of 15. 6- hour of 71, delta 46 He received nitroglycerin via EMS which appears to have relieved his chest pain. Currently chest pain-free Underwent coronary angiography, multivessel CAD, awaiting transfer to tertiary level center for consideration of CABG Admit patient to CSU, continuous telemetry monitoring Continue Lovenox 1 mg/kg every 12 hours, Hold Eliquis as there are or plans on coronary bypass surgery He has received aspirin 325 mg, will continue with 81 mg p.o. daily. Add atorvastatin 40 mg p.o. daily Cardiology consult. (2) Atrial fibrillation: Currently rate controlled Continue home dose of Cardizem ER 360 mg daily Eliquis on hold as above Plan Plan for today monitor for chest pain monitor awake overnight monitor clinically, continue Lovenox after cardiac cath when cardiology deems appropriate, awaiting transfer to tertiary level center for CABG, spoke to cardiology spoke to patient, spoke to nursing staff, spoke to patient's Attestations Medical Necessity Statement*: Patient requires CABG awaiting transfer to tertiary level center Diagnoses Non-ST elevated myocardial infarction (non-STEMI) I21.4 Atrial fibrillation I48.91
[2023-02-17] MEDS: dilTIAZem ER (24HR) 180 mg Capsule 360 MG PO (19:52)
[2023-02-17] MEDS: enoxaparin 80 mg/0.8 mL Syringe SUBCUT (19:53)
[2023-02-17] MEDS: morphine 4 mg/mL SDV 1 mL 2 MG IVP (20:09)
[2023-02-18] VITALS (8 sets, daily range): BP systolic 105–148; BP diastolic 67–88; PULSE 54–78; RESP 14–21; TEMP 36.6–36.8; O2SAT 92–97
[2023-02-18 06:00] LABS: Basophils # 0.1 10^3/uL (0.0-0.1); Basophils % 0.5 %; Eosinophils # 0.9 10^3/uL (0.0-0.8); Eosinophils % 8.9 %; Hematocrit 33.1 % (42.0-52.0); Hemoglobin 11.2 g/dL (11.7-16.6); Lymphocytes # 2.2 10^3/uL (0.8-4.8); Lymphocytes % 22.5 %; Mean Corpuscular HGB Conc 33.8 g/dL (30.0-36.0); Mean Corpuscular Hemoglobin 33.3 pg (28.0-34.0); Mean Corpuscular Volume 98.5 fl (80-94); Mean Platelet Volume 12.6 fL (7.4-10.4); Monocytes % 9.8 %; Neutrophils # 5.52 10^3/uL (1.8-7.7); Neutrophils % 57.2 %; Nucleated Red Blood Cells % 0 %; Platelet Count 205 10^3/cmm (130-400); Red Blood Count 3.36 10^6/uL (4.1-5.3); Red Cell Distribution Width 13.8 % (12.1-15.1); White Blood Count 9.7 10^3/uL (4.0-10.0)
[2023-02-18] MEDS: enoxaparin 80 mg/0.8 mL Syringe SUBCUT (06:17)
[2023-02-18 06:23] LABS: Anion Gap 12.7 (5-19); Blood Urea Nitrogen 17 mg/dL (8-23); Calcium 8.1 mg/dL (8.5-10.5); Carbon Dioxide 26 mmol/L (22-29); Chloride 105 mmol/L (98-107); Glucose 74 mg/dL (65-115); Osmolality Calculated 290 mOsm/kg (285-295); Potassium 3.7 mmol/L (3.5-5.1); Sodium 140 mmol/L (136-145)
--- NOTE | 2023-02-18 07:35 | P.PN_ITS ---
Subjective Subjective: Patient is doing well. No chest pain. Plan for transfer today for cabg Vitals/I&O/Wt Last Vital Signs Temp 98.2 F 02/18/23 03:53 Pulse 73 02/18/23 05:52 Resp 17 02/18/23 03:53 BP 148/78 02/18/23 03:53 Pulse Ox 97 02/18/23 03:53 O2 Del Method Room Air 02/17/23 16:00 02/17/23 02/18/23 02/18/23 22:59 06:59 14:59 Intake Total 240 / 960 1000 / 1960 Balance 240 / 960 1000 / 1960 Physical Exam Narrative: GENERAL: Patient is alert, awake and oriented x3. [] NECK: No jugular vein distension. [] HEENT: No cyanosis. No icterus. No pallor. [] HEART: Regular S1 and S2. No murmur, rub or gallop. [] LUNGS: Clear to auscultate bilaterally. [] CENTRAL NERVOUS SYSTEM: Grossly nonfocal. [] EXTREMITIES: Lower extremities with no edema Data 02/18/23 04:55 02/18/23 04:55 A&P Assessment and plan (1) Non-ST elevated myocardial infarction (non-STEMI): (2) Atrial fibrillation: Plan Patient has stayed stable overnight. Plan for transfer to [facility] today. Continue aspirin ECHO shows normal LV systolic function. Thank you for involving us with care of this patient. We will continue to follow. Please call with questions. Attestations Medical Necessity Statement*: Care expected to cross 2 midnights. Coding Level of Care Code Acute Code for [facility] Diagnoses Non-ST elevated myocardial infarction (non-STEMI) I21.4 Atrial fibrillation I48.91
[2023-02-18] MEDS: aspirin 81 mg EC Tablet PO (08:17)
[2023-02-18] MEDS: terazosin 5 mg Capsule 10 MG PO (08:17)
[2023-02-18] MEDS: pantoprazole DR 40 mg Tablet PO (08:18)
[2023-02-18] MEDS: atorvastatin 40 mg Tablet PO (08:18)
--- NOTE | 2023-02-18 13:17 | PC.NURSE ---
Report called to Kathie Roman RN at [facility] in [facility] at 1313. He is being transferred to [facility] room 341 bed 1 for teriary level of care.
--- NOTE | 2023-02-18 15:33 | PC.NURSE ---
Patient is picked up by EMS to transfer to [facility] in [facility]. Left CSU at 1534.
--- NOTE | 2023-02-18 17:40 | PM.TDS ---
Transfer Summary Providers Date of Admission: 02/16/23 02:51 Date of Discharge/Transfer: 02/19/23 Attending Provider at Admission: Coby Chase MD Attending Provider at Transfer: Ace Baker MD Primary Care Provider: Eddie Colon MD Transfer Plans: Anticipated date of transfer: 02/19/23. Diagnoses at Discharge Discharge Diagnosis (1) Non-ST elevated myocardial infarction (non-STEMI): Status: Acute (2) Atrial fibrillation: Status: Acute Reason for Visit Reason for Visit CP Hospital Course Hospital Course Brian Chavez is a 82 year old male with a past medical history of hypertension, A-fib, currently on Eliquis, presented to the emergency room with 1 week of intermittent chest pain.? Patient states he first noticed his chest pain 1 week ago with some minimal exertion.? Chest pain was felt as a central pressure, located in the middle of the chest, nonradiating, no associated symptoms, 7/10 intensity at its peak.? Rest appears to relieve his pain.? This has been happening intermittently with exertion over the past 1 week.? He does not have a past history of CAD.? He had a stress test several years ago which was essentially normal.? He presented to outside hospital yesterday for similar complaints and was discharged after their initial evaluation.? He was asked to undergo a stress test order urgently.? Today his pain continued to intensify so he came to the ER again.? He received nitroglycerin x2 via EMS which caused relief of the pain. Patient was admitted to [facility] for NSTEMI, underwent coronary angiography, found to have multivessel CAD, recommended transfer for CABG, patient was transferred for CABG to [facility] Physical Exam Const: COMMON NORMALS: no acute distress and patient oriented x3 Resp: COMMON NORMALS: normal respiratory effort, No retractions, No use of accessory muscles and clear to auscultation bilaterally AUSCULTATION: clear to auscultation bilaterally Cardio: COMMON NORMALS: regular rate, regular rhythm, S1 normal heart sound present and S2 normal heart sound present RATE: regular rate RHYTHM: regular rhythm HEART SOUNDS: S1 normal heart sound present and S2 normal heart sound present GI: COMMON NORMALS: Normal to inspection, nondistended, normoactive bowel sounds present and non-tender Extremity: COMMON NORMALS: no pedal edema Neuro: COMMON NORMALS: patient oriented x3 Psych: COMMON NORMALS: mental status grossly normal TS Data Studies Completed and Pending Pending at discharge Category Date Time Status [employer] request for service Routine Exams 02/17/23 06:18 Taken Labs from last 24 hours 02/18/23 02/18/23 04:55 04:55 WBC 9.7 RBC 3.36 L Hgb 11.2 L Hct 33.1 L MCV 98.5 H MCH 33.3 MCHC 33.8 RDW 13.8 Plt Count 205 MPV 12.6 H Neut % (Auto) 57.2 Lymph % (Auto) 22.5 [place] % (Auto) 9.8 Eos % (Auto) 8.9 Baso % (Auto) 0.5 Neut # (Auto) 5.52 Lymph # (Auto) 2.2 [place] # (Auto) 1.0 H Eos # (Auto) 0.9 H Baso # (Auto) 0.1 Nucleated RBC % (auto) 0 Nucleated RBCs # 0.0 Sodium 140 Potassium 3.7 Chloride 105 Carbon Dioxide 26 Anion Gap 12.7 BUN 17 Creatinine 1.0 GFR Calculation Not Reportable Glucose 74 Calculated Osmolality 290 Calcium 8.1 L Completed Studies During Hospitalization Category Date Time Status XR chest 1V portable [id number] Stat Exams 02/16/23 00:04 Completed CV. echo complete* [id number] Routine Ultrasound 02/16/23 03:38 Completed Laboratory Last Values WBC 9.7 10^3/uL (4.0-10.0) 02/18/23 04:55 RBC 3.36 10^6/uL (4.1-5.3) L 02/18/23 04:55 Hgb 11.2 g/dL (11.7-16.6) L 02/18/23 04:55 Hct 33.1 % (42.0-52.0) L 02/18/23 04:55 MCV 98.5 fl (80-94) H 02/18/23 04:55 MCH 33.3 pg (28.0-34.0) 02/18/23 04:55 MCHC 33.8 g/dL (30.0-36.0) 02/18/23 04:55 RDW 13.8 % (12.1-15.1) 02/18/23 04:55 Plt Count 205 10^3/cmm (130-400) 02/18/23 04:55 MPV 12.6 fL (7.4-10.4) H 02/18/23 04:55 Neut % (Auto) 57.2 % 02/18/23 04:55 Lymph % (Auto) 22.5 % 02/18/23 04:55 [place] % (Auto) 9.8 % 02/18/23 04:55 Eos % (Auto) 8.9 % 02/18/23 04:55 Baso % (Auto) 0.5 % 02/18/23 04:55 Neut # (Auto) 5.52 10^3/uL (1.8-7.7) 02/18/23 04:55 Lymph # (Auto) 2.2 10^3/uL (0.8-4.8) 02/18/23 04:55 [place] # (Auto) 1.0 10^3/uL (0.2-0.9) H 02/18/23 04:55 Eos # (Auto) 0.9 10^3/uL (0.0-0.8) H 02/18/23 04:55 Baso # (Auto) 0.1 10^3/uL (0.0-0.1) 02/18/23 04:55 Nucleated RBC % (auto) 0 % 02/18/23 04:55 Nucleated RBCs # 0.0 /100WBC 02/18/23 04:55 Sodium 140 mmol/L (136-145) 02/18/23 04:55 Potassium 3.7 mmol/L (3.5-5.1) 02/18/23 04:55 Chloride 105 mmol/L (98-107) 02/18/23 04:55 Carbon Dioxide 26 mmol/L (22-29) 02/18/23 04:55 Anion Gap 12.7 (5-19) 02/18/23 04:55 BUN 17 mg/dL (8-23) 02/18/23 04:55 Creatinine 1.0 mg/dL (0.7-1.2) 02/18/23 04:55 GFR Calculation Not Reportable 02/18/23 04:55 Glucose 74 mg/dL (65-115) 02/18/23 04:55 Calculated Osmolality 290 mOsm/kg (285-295) 02/18/23 04:55 Calcium 8.1 mg/dL (8.5-10.5) L 02/18/23 04:55 Total Bilirubin 0.6 mg/dL (0.15-1.2) 02/17/23 03:52 AST 17 U/L (0-40) 02/17/23 03:52 ALT 11 U/L (0-41) 02/17/23 03:52 Alkaline Phosphatase 50 U/L (40-130) 02/17/23 03:52 Troponin T Baseline 25 ng/L (0-15) H 02/16/23 00:20 Troponin T 120 Minute 40.21 ng/L (0-15) H 02/16/23 01:56 Delta Troponin T 15.21 ABS# (0-10) H* 02/16/23 01:56 Troponin T Hi Sens 6Hr 71.41 ng/L (0-15) H 02/16/23 06:40 Troponin T Hi Sens 6Hr Delta 46.41 ng/L (0-12) H* 02/16/23 06:40 NT-Pro-B Natriuret Pep 379 pg/mL (0-450) 02/16/23 00:20 Total Protein 5.3 g/dL (6.6-8.7) L 02/17/23 03:52 Albumin 3.2 g/dL (3.5-5.2) L 02/17/23 03:52 Globulin 2.1 g/dL (1.3-4.6) 02/17/23 03:52 Radiology Impressions Chest X-Ray 02/16/23 00:04 IMPRESSION: Mildly hyperaerated lungs consistent with deep inspiratory effort vs reactive airway disease vs mild COPD . Recent Clincial Data Last Vital Signs Temp 97.8 F 02/18/23 08:00 Pulse 75 02/18/23 15:31 Resp 19 H 02/18/23 15:31 BP 140/83 02/18/23 15:31 Pulse Ox 96 02/18/23 15:31 O2 Del Method Room Air 02/18/23 12:59 Vital Signs Temp Pulse Resp BP Pulse Ox O2 Del Method 02/18/23 14:00 54 L 02/18/23 15:31 75 19 H 140/83 96 02/18/23 12:59 78 19 H 140/83 96 Room Air 02/18/23 11:29 58 L 21 H 127/87 96 Room Air 02/18/23 08:00 97.8 F 58 L 14 105/67 92 Room Air 02/18/23 05:52 73 Intake & Output/Weight 02/16/23 02/17/23 02/18/23 02/19/23 06:59 06:59 06:59 06:59 Intake Total 800 / 800 360 / 360 1959 / 1959 840 / 840 Balance 800 / 800 360 / 360 1959 / 1959 840 / 840 Weight 81.647 kg Vitals Last Vital Signs Temp 97.8 F 02/18/23 08:00 Pulse 75 02/18/23 15:31 Resp 19 H 02/18/23 15:31 BP 140/83 02/18/23 15:31 Pulse Ox 96 02/18/23 15:31 O2 Del Method Room Air 02/18/23 12:59 TS Medications Medications Discontinued Medications Acetaminophen (Acetaminophen 325 Mg Tablet) 650 mg PO Q6H PRN PRN Reason: Mild/Mod Pain Or Temp >/= 101 Last Admin: 02/17/23 10:53 Dose: 650 mg Hydrocodone Bitart/Acetaminophen (Hydrocodone-Acetaminophen 5-325 Mg Tablet) 1 tab PO Q4H PRN PRN Reason: MODERATE TO SEVERE PAIN Aspirin (Aspirin 325 Mg Tablet) 325 mg PO ONCE ONE Stop: 02/16/23 02:50 Last Admin: 02/16/23 03:16 Dose: 325 mg Aspirin (Aspirin 81 Mg Ec Tablet) 81 mg PO DAILY [facility] Last Admin: 02/18/23 08:17 Dose: 81 mg Aspirin (Aspirin 325 Mg Tablet) 325 mg PO ONCE ONE Stop: 02/16/23 13:18 Last Admin: 02/16/23 14:10 Dose: 325 mg Atorvastatin Calcium (Atorvastatin 40 Mg Tablet) 20 mg PO DAILY [facility] Atorvastatin Calcium (Atorvastatin 40 Mg Tablet) 40 mg PO DAILY [facility] Last Admin: 02/18/23 08:18 Dose: 40 mg Clopidogrel Bisulfate (Clopidogrel 300 Mg Tablet) 300 mg PO ONCE ONE Stop: 02/16/23 02:50 Last Admin: 02/16/23 03:16 Dose: 300 mg Diltiazem HCl (Diltiazem Er (24hr) 180 Mg Capsule) 360 mg PO BEDTIME [facility] Last Admin: 02/17/23 19:52 Dose: 360 mg Diphenhydramine HCl (Diphenhydramine 50 Mg Capsule) 50 mg PO ONCE ONE Stop: 02/16/23 13:18 Last Admin: 02/17/23 04:42 Dose: Not Given Diphenhydramine HCl (Diphenhydramine 50 Mg Capsule) 50 mg PO ONCE ONE Stop: 02/17/23 06:01 Last Admin: 02/17/23 10:52 Dose: Not Given Enoxaparin Sodium (Enoxaparin 80 Mg/0.8 Ml Syringe) 80 mg SUBCUT ONCE ONE Stop: 02/16/23 04:01 Last Admin: 02/16/23 05:51 Dose: 80 mg Enoxaparin Sodium (Enoxaparin 100 Mg/Ml Syringe) 80 mg 1 mg/kg (80 mg) SUBCUT Q12H [facility] Last Admin: 02/16/23 19:16 Dose: Not Given Enoxaparin Sodium (Enoxaparin 80 Mg/0.8 Ml Syringe) 80 mg 1 mg/kg (80 mg) SUBCUT Q12H [facility] Last Admin: 02/17/23 19:12 Dose: Not Given Enoxaparin Sodium (Enoxaparin 80 Mg/0.8 Ml Syringe) 80 mg 1 mg/kg (80 mg) SUBCUT Q12H [facility] Last Admin: 02/18/23 06:17 Dose: 80 mg Fentanyl (Fentanyl 50 Mcg/Ml Inj 2ml) Confirm Administered Dose 100 mcg .ROUTE .STK-MED ONE Stop: 02/17/23 06:18 Heparin Sodium (Porcine) (Heparin 5,000 Unit/Ml Inj 1 Ml) Confirm Administered Dose 5,000 unit .ROUTE .STK-MED ONE Stop: 02/17/23 06:18 Heparin Sodium (Porcine) (Heparin 5,000 Unit/Ml Inj 1 Ml) Confirm Administered Dose 5,000 unit .ROUTE .STK-MED ONE Stop: 02/17/23 07:41 Heparin Sodium (Porcine) (Heparin 5,000 Unit/Ml Inj 1 Ml) Confirm Administered Dose 5,000 unit .ROUTE .STK-MED ONE Stop: 02/17/23 07:59 Sodium Chloride (Sodium Chloride 0.9%) 1,000 mls @ 50 mls/hr IV .Q20H ONE Stop: 02/17/23 09:16 Last Admin: 02/17/23 03:22 Dose: Not Given Sodium Chloride (Sodium Chloride 0.9%) 1,000 mls @ 50 mls/hr IV .Q20H ONE Stop: 02/18/23 01:59 Last Infusion: 02/18/23 00:36 Dose: Infused Lidocaine HCl (Xylocaine) Confirm Administered Dose 3 mls @ as directed .ROUTE .STK-MED ONE Stop: 02/17/23 06:18 Midazolam HCl (Midazolam 1 Mg/Ml Inj 2 Ml) Confirm Administered Dose 2 mg .ROUTE .STK-MED ONE Stop: 02/17/23 06:17 Midazolam HCl (Midazolam 1 Mg/Ml Inj 2 Ml) Confirm Administered Dose 2 mg .ROUTE .STK-MED ONE Stop: 02/17/23 08:06 Morphine Sulfate (Morphine 4 Mg/Ml Sdv 1 Ml) 2 mg IVP Q4H PRN PRN Reason: SEVERE PAIN Last Admin: 02/17/23 20:09 Dose: 2 mg Naloxone HCl (Naloxone 0.4 Mg/Ml Sdv) 0.1 mg IVP Q2M PRN PRN Reason: OPIATERV Nitroglycerin (Nitroglycerin 5 Mg/Ml Sdv 10 Ml) Confirm Administered Dose 50 mg .ROUTE .[facility]-MED ONE Stop: 02/17/23 06:17 Ondansetron HCl (Ondansetron 2 Mg/Ml Sdv 2 Ml) 4 mg IVP Q8H PRN PRN Reason: vomiting, or N/V if npo Pantoprazole Sodium (Pantoprazole Dr 40 Mg Tablet) 40 mg PO DAILY [facility] Last Admin: 02/18/23 08:18 Dose: 40 mg Potassium Chloride (Potassium Chloride Er 20 Meq Tablet) 40 meq PO ONCE ONE Stop: 02/16/23 02:30 Last Admin: 02/16/23 02:44 Dose: 40 meq Terazosin HCl (Terazosin 5 Mg Capsule) 10 mg PO DAILY [facility] Last Admin: 02/18/23 08:17 Dose: 10 mg Tramadol HCl (Tramadol 50 Mg Tablet) 50 mg PO DAILY PRN PRN Reason: Pain Allergies No Known Allergies Allergy (Verified 02/16/23 00:06) Home Medications apixaban 5 mg tablet (Eliquis) 5 mg PO BID 02/16/23 [History Confirmed 02/16/23] cetirizine 10 mg tablet 10 mg PO DAILY 02/16/23 [History Confirmed 02/16/23] diltiazem HCl 360 mg capsule,extended release 24 hr 360 mg PO BEDTIME 02/16/23 [History Confirmed 02/16/23] dorzolamide 22.3 mg-timolol 6.8 mg/mL eye drops 1 drp ophthalmic (eye) DAILY 02/16/23 [History Confirmed 02/16/23] hydrochlorothiazide 12.5 mg capsule 12.5 mg PO DAILY 02/16/23 [History Confirmed 02/16/23] ibuprofen 200 mg tablet 200 mg PO Q6H PRN Pain 02/16/23 [History Confirmed 02/16/23] irbesartan 150 mg tablet 150 mg PO BEDTIME 02/16/23 [History Confirmed 02/16/23] lansoprazole 15 mg capsule,delayed release (Prevacid 24Hr) 15 mg PO DAILY 02/16/23 [History Confirmed 02/16/23] latanoprost 0.005 % eye drops 1 drp ophthalmic (eye) BEDTIME 02/16/23 [History Confirmed 02/16/23] multivit,Ca,min-iron 8 mg-folic acid 200 mcg-lycopene 600 mcg tablet (Centrum Men) 1 tab PO DAILY 02/16/23 [History Confirmed 02/16/23] ondansetron 4 mg disintegrating tablet 4 mg PO Q8H PRN Nausea 02/16/23 [History Confirmed 02/16/23] potassium chloride 10 mEq capsule,extended release 20 meq PO DAILY 02/16/23 [History Confirmed 02/16/23] terazosin 10 mg capsule 10 mg PO DAILY 02/16/23 [History Confirmed 02/16/23] tramadol 50 mg tablet 50 mg PO DAILY PRN Pain 02/16/23 [History Confirmed 02/16/23] vit C 250 mg-vit E 90 mg-zinc 40 mg-copper 1 [id number] capsule (PreserVision AREDS-2) 1 cap PO DAILY 02/16/23 [History Confirmed 02/16/23] Discharge Plan Discharge Patient Disposition: Xfer Other Condition: Stable Prescriptions: No Action cetirizine 10 mg Tablet 10 mg PO DAILY potassium chloride 10 mEq capsule, extended release 20 meq PO DAILY hydrochlorothiazide 12.5 mg capsule 12.5 mg PO DAILY ondansetron 4 mg tablet,disintegrating 4 mg PO Q8H PRN (Reason: Nausea) terazosin 10 mg capsule 10 mg PO DAILY Centrum Men 8 mg iron- 200 mcg-600 mcg Tablet 1 tab PO DAILY PreserVision AREDS-2 250-90-40-1 mg Capsule 1 cap PO DAILY diltiazem HCl 360 mg capsule,extended release 24hr 360 mg PO BEDTIME tramadol 50 mg tablet 50 mg PO DAILY PRN (Reason: Pain) Prevacid 24Hr 15 mg Capsule,Delayed Release(Dr/Ec) 15 mg PO DAILY ibuprofen 200 mg Tablet 200 mg PO Q6H PRN (Reason: Pain) dorzolamide-timolol 22.3-6.8 mg/mL drops 1 drp ophthalmic (eye) DAILY irbesartan 150 mg tablet 150 mg PO BEDTIME Eliquis 5 mg tablet 5 mg PO BID latanoprost 0.005 % drops 1 drp ophthalmic (eye) BEDTIME Discharge Orders: Transfer Out of Facility (Order); Ordered 02/18/23 Ordered By: Ace Baker Referrals: Eddie Colon MD [Primary Care Provider] - Patient Instructions: Opioid Safety Transfer Attestations Time Spent in Transfer Care: greater than 30 min Quality Metrics Clinical Quality Measures [ No reported AMI, CVA or VTE this stay] Coding Level of Care Code 44846 Total time (in minutes) for Discharge: 40 Diagnoses Non-ST elevated myocardial infarction (non-STEMI) I21.4 Atrial fibrillation I48.91
== END 2023-02-18 15:30 | disposition short-term general hospital (02) | DRG 282 ==
LOC: ER 02:51 → CSU 03:08
PROVIDERS: Internal Medicine; Admitting Provider Student in an Organized Health Care Education/Training Program; Emergency Provider Emergency Medicine; PCP Family Medicine; Visit Provider Family Medicine
PROC: 4A023N7 Measurement of Cardiac Sampling and Pressure, Left Heart, Percutaneous Approach (ICD-10-PCS; principal; 2023-02-17 07:00)
DX: I21.4 Non-ST elevation (NSTEMI) myocardial infarction (principal); I25.10 Atherosclerotic heart disease of native coronary artery without angina pectoris; I25.84 Coronary atherosclerosis due to calcified coronary lesion; I10 Essential (primary) hypertension; I48.91 Unspecified atrial fibrillation; Z79.01 Long term (current) use of anticoagulants
CPT/HCPCS: 36415; 71045; 80048; 80053; 83880; 84484; 85025; 93005; 93306; 93454; 96365; 96372; 96376; 99152; 99153; 99285; C1725; C1769; C1887; C1894; J1644; J1650; J2250; J2270; J3010; J3490; J7030; Q9967

== ENCOUNTER 2023-07-22 10:04 | Emergency (ER) | payer MEDICARE, OTHER, SELFPAY ==
[2023-07-22] VITALS (39 sets, daily range): BP systolic 116–137; BP diastolic 57–78; PULSE 60–89; RESP 16–24; TEMP 36.3; O2SAT 83–100; BMI 28.6
--- NOTE | 2023-07-22 10:14 | ECG_ITS ---
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 Measurements Intervals [place] Rate: 69 P: 0 WA: 0 QRS: 69 QRSD: 93 T: 73 QT: 390 QTc: 419 Interpretive Statements ATRIAL FIBRILLATION Compared to ECG 02/16/2023 06:07:37 ST (T wave) deviation no longer present Electronically Signed On 07-22-2023 10:43:22 CONTRACT RECRUITER by Raul Berg M.D. [email or web address]
--- NOTE | 2023-07-22 10:54 | XR_ITS ---
WS: [id number] Portable AP upright chest, 07/22/2023 Clinical Data: cp Comparison: Portable chest, 02/16/2023 Findings: No nodules, masses or effusions are seen. The heart is normal. The pulmonary vascularity is not increased. No pneumonia or pneumothorax is seen. Midline sternotomy sutures are present. The aor tic arch and descending thoracic aorta show mild tortuosity. Impression: Atherosclerosis.
--- NOTE | 2023-07-22 10:59 | ED_ITS ---
HPI - Chest Pain General: Chief Complaint: Chest Pain Stated Complaint: chest Pain Time Seen by Provider: 07/22/23 10:53 Source: patient Mode of arrival: ambulatory Limitations: no limitations History of Present Illness: 83-year-old male states that he been having chest pain over the last 2 days. States it is mainly with inspiration has extensive cardiac history had stents placed along with a CABG. He denies any pain currently at rest he had no shortness of breath denies any cough no history of DVT or pulm embolism. Denies any vomiting or diarrhea. Associated symptoms: Deny abdominal pain, dyspnea, fever(s), nausea or vomiting Review of Systems Const: Denies: fever(s), chills, body aches or change in appetite Eyes: Denies: blurry vision or eye discomfort ENMT: Denies: throat pain or dental pain Card: Reports: chest pain Resp: Denies: dyspnea GI: Denies: abdominal pain, nausea, vomiting or diarrhea : Denies: dysuria Musc: Denies: neck pain or back pain Skin/Breast: Denies: rash Neuro: Denies: headache(s) Physical Exam Const: COMMON NORMALS: no acute distress, patient oriented x3 and healthy appearing HENMT: COMMON NORMALS: normocephalic and atraumatic HEAD & SCALP: normocephalic and atraumatic Eye: COMMON NORMALS: Equal, round and reactive pupils present and EOMs intact bilaterally PUPIL: Yes Equal, round and reactive pupils present Neck/C-Spine: COMMON NORMALS: full ROM and supple Chest: COMMONS NORMALS: normal inspection of the chest and normal palpation of entire chest wall Resp: COMMON NORMALS: normal respiratory effort, No retractions, No use of accessory muscles and clear to auscultation bilaterally AUSCULTATION: clear to auscultation bilaterally Cardio: COMMON NORMALS: regular rate, regular rhythm and No murmurs present (Cardio) RATE: regular rate RHYTHM: regular rhythm GI: COMMON NORMALS: Normal to inspection, nondistended, normoactive bowel sounds present, Soft to palpation, non-tender and no masses PALPATION: Yes Soft to palpation Extremity: COMMON NORMALS: normal to inspection and full ROM Neuro: COMMON NORMALS: patient oriented x3, moves all extremities and no focal motor deficits Psych: COMMON NORMALS: mental status grossly normal, Normal thought process present and cooperative THOUGHT PROCESS: Normal thought process present Skin: COMMON NORMALS: no rashes or lesions noted and no wounds GENERAL SKIN EXAM: no rashes or lesions noted Course Vital Signs: Vital signs: Vital Signs Temperature 97.4 F L 07/22/23 10:10 Pulse Rate 82 07/22/23 14:25 Respiratory Rate 20 H 07/22/23 14:25 Blood Pressure 128/75 07/22/23 14:25 Pulse Oximetry 96 07/22/23 14:25 Oxygen Delivery Me thod Room Air 07/22/23 14:25 MDM - Chest Pain Medical Decision Making Patient presents with chest pains atypical in nature his troponins here are negative. He has been pain-free here he has no signs of dissection or pulm embolism BNP is mildly elevated he has some slight fluid overload he did urinate here after Lasix states he is feeling improved did inform him to double his Lasix over the next 5 days follow-up with his coo return if worsening he understands agrees to plan. Medical Records I reviewed the patient's medical records. Lab Data I reviewed the patient's lab results. 07/22/23 11:20 07/22/23 11:20 Laboratory Results WBC 12.14 10^3/uL (3.29-11.43) H 07/22/23 11:20 RBC 3.07 10^6/uL (3.85-5.65) L 07/22/23 11:20 Hgb 10.10 g/dL (11.27-16.99) L 07/22/23 11:20 Hct 30.5 % (37-53) L 07/22/23 11:20 MCV 99.3 fl (82-101) 07/22/23 11:20 MCH 32.9 pg (27-33) 07/22/23 11:20 MCHC 33.1 g/dL (30-55) 07/22/23 11:20 RDW 15.9 % (12.1-15.1) H 07/22/23 11:20 Plt Count 197 10^3/cmm (157-399) 07/22/23 11:20 MPV 12.2 fL (7.4-10.4) H 07/22/23 11:20 Neut % (Auto) 67.4 % 07/22/23 11:20 Lymph % (Auto) 18.0 % 07/22/23 11:20 [place] % (Auto) 10.8 % 07/22/23 11:20 Eos % (Auto) 2.7 % 07/22/23 11:20 Baso % (Auto) 0.4 % 07/22/23 11:20 Neut # (Auto) 8.18 10^3/uL (1.8-7.7) H 07/22/23 11:20 Lymph # (Auto) 2.2 10^3/uL (0.8-4.8) 07/22/23 11:20 [place] # (Auto) 1.3 10^3/uL (0.2-0.9) H 07/22/23 11:20 Eos # (Auto) 0.3 10^3/uL (0.0-0.8) 07/22/23 11:20 Baso # (Auto) 0.1 10^3/uL (0.0-0.1) 07/22/23 11:20 Nucleated RBC % (auto) 0 % 07/22/23 11:20 Nucleated RBCs # 0.0 /100WBC 07/22/23 11:20 PT 15.50 SECONDS (12.1-14.9) H 07/22/23 11:20 INR 1.19 (0.8-1.2) 07/22/23 11:20 Sodium 140 mmol/L (136-145) 07/22/23 11:20 Potassium 4.5 mmol/L (3.5-5.1) 07/22/23 11:20 Chloride 105 mmol/L (98-107) 07/22/23 11:20 Carbon Dioxide 25 mmol/L (22-29) 07/22/23 11:20 Anion Gap 14.5 (5-19) 07/22/23 11:20 BUN 25 mg/dL (8-23) H 07/22/23 11:20 Creatinine 1.3 mg/dL (0.7-1.2) H 07/22/23 11:20 GFR Calculation Not Reportable 07/22/23 11:20 Glucose 103 mg/dL (65-115) 07/22/23 11:20 Calculated Osmolality 295 mOsm/kg (285-295) 07/22/23 11:20 Calcium 8.7 mg/dL (8.5-10.5) 07/22/23 11:20 Total Bilirubin 1.1 mg/dL (0.15-1.2) 07/22/23 11:20 AST 24 U/L (0-40) 07/22/23 11:20 ALT 17 U/L (0-41) 07/22/23 11:20 Alkaline Phosphatase 64 U/L (40-130) 07/22/23 11:20 Troponin T Baseline 18 ng/L (0-15) H 07/22/23 11:20 Troponin T 120 Minute 19.23 ng/L (0-15) H 07/22/23 13:28 Delta Troponin T 1.23 ABS# (0-10) 07/22/23 13:28 NT-Pro-B Natriuret Pep 3300 pg/mL (0-450) H 07/22/23 11:20 Total Protein 6.8 g/dL (6.6-8.7) 07/22/23 11:20 Albumin 4.1 g/dL (3.5-5.2) 07/22/23 11:20 Globulin 2.7 g/dL (1.3-4.6) 07/22/23 11:20 Lipase 22 U/L (13-60) 07/22/23 11:20 All radiology interpretation(s) finalized by discharge EKG Data EKG 1: I personally reviewed and interpreted this EKG as follows: EKG interpretation date: 07/22/23 EKG interpretation time: 10:13 Interpretation: afib hr [address] or t wave abnormalities qrs 93 qtc 409 Discharge Plan Discharge Patient Disposition: Home Clinical Impression: Chest pain, CHF (congestive heart failure) Condition: Stable Prescriptions: No Action atorvastatin 80 mg tablet 80 mg PO BEDTIME tizanidine 2 mg tablet 2 mg PO Q6H PRN (Reason: Muscle Spasm) metoprolol succinate 50 mg tablet extended release 24 hr 50 mg PO QAM potassium chloride 10 mEq tablet extended release 20 meq PO QAM clopidogrel 75 mg tablet 75 mg PO BEDTIME Aspir-81 81 mg Tablet,Delayed Release (Dr/Ec) 81 mg PO QAM Tylenol Ex Str Rapid Release 500 mg Tablet 1,000 mg PO Q6H PRN (Reason: Pain) famotidine 20 mg tablet 20 mg PO BID PRN (Reason: Heartburn) Lasix 20 mg Tablet See Rx Instructions .ROUTE .COMPLEX Rx Instructions: 20mg po daily except on friday Ventolin HFA 90 mcg/actuation HFA aerosol inhaler 2 puff INHALATION Q4H PRN (Reason: Shortness Of Breath) Breztri Aerosphere 160-9-4.8 mcg/actuation HFA aerosol inhaler 2 inh INHALATION BID PRN (Reason: unknown) cetirizine 10 mg Tablet 10 mg PO QAM ondansetron 4 mg tablet,disintegrating 4 mg PO QAM terazosin 10 mg capsule 10 mg PO DAILY Rx Instructions: rx last filled 03/21/23 90d/s rx has refills Centrum Men 8 mg iron- 200 mcg-600 mcg Tablet 1 tab PO QAM PreserVision AREDS-2 250-90-40-1 mg Capsule 1 cap PO DAILY diltiazem HCl 360 mg capsule,extended release 24hr 360 mg PO BEDTIME tramadol 50 mg tablet 50 mg PO Q8H PRN (Reason: Pain) dorzolamide-timolol 22.3-6.8 mg/mL drops 1 drp ophthalmic (eye) BID irbesartan 150 mg tablet 150 mg PO BEDTIME Eliquis 5 mg tablet 5 mg PO BID latanoprost 0.005 % drops 1 drp ophthalmic (eye) BEDTIME Discharge Orders: Discharge ED (Routine); Ordered 07/22/23 Ordered By: Leora Sandoval Referrals: Eddie Colon MD [Primary Care Provider] - 1-3 days Discharge Diet: Advance as tolerated Discharge Activity: Resume usual activity Patient Instructions: Heart Failure (ED), Chest Pain (ED) Coding Level of Care Code ED Track Service Worker for Ximena Cook
[2023-07-22 11:32] LABS: Basophils # 0.1 10^3/uL (0.0-0.1); Basophils % 0.4 %; Eosinophils # 0.3 10^3/uL (0.0-0.8); Eosinophils % 2.7 %; Hematocrit 30.5 % (37-53); Lymphocytes # 2.2 10^3/uL (0.8-4.8); Mean Corpuscular HGB Conc 33.1 g/dL (30-55); Mean Corpuscular Hemoglobin 32.9 pg (27-33); Mean Corpuscular Volume 99.3 fl (82-101); Mean Platelet Volume 12.2 fL (7.4-10.4); Monocytes # 1.3 10^3/uL (0.2-0.9); Monocytes % 10.8 %; Neutrophils # 8.18 10^3/uL (1.8-7.7); Neutrophils % 67.4 %; Nucleated Red Blood Cells % 0 %; Platelet Count 197 10^3/cmm (157-399); Red Blood Count 3.07 10^6/uL (3.85-5.65); Red Cell Distribution Width 15.9 % (12.1-15.1); White Blood Count 12.14 10^3/uL (3.29-11.43)
--- NOTE | 2023-07-22 11:42 | PC.PHAR ---
pt and pts verified pts medications-pt states he thinks his hctz 12.5mg daily and spironolactone 25mg daily was dced [facility] states hctz was dced on 06/16/23 and spironolactone dced on 07/11/23-terazosin 10mg daily filled 03/21/23 90d/s rx has refills-pt states he takes lasix 20mg daily except for on sundays ext shows 40mg daily filled 04/08/23 30d/s and 20mg daily filled 09/18/22 90d/s-pt states he takes zofran 4mg qam ext shows last filled 06/24/23 10d/s 4mg po q8h prn-pt states he uses dorzolamide-timolol 1 drop bid states it was increased to bid ext shows last filled 06/30/23 90d/s 1 drop daily-notes are made in the pharmacy comments
[2023-07-22 11:49] LABS: INR 1.19 (0.8-1.2)
[2023-07-22 11:58] LABS: Troponin(5th) Baseline 18 ng/L (0-15)
[2023-07-22 12:08] LABS: Alanine Aminotransferase 17 U/L (0-41); Albumin Level 4.1 g/dL (3.5-5.2); Alkaline Phosphatase 64 U/L (40-130); Anion Gap 14.5 (5-19); Aspartate Amino Transferase 24 U/L (0-40); Blood Urea Nitrogen 25 mg/dL (8-23); Calcium 8.7 mg/dL (8.5-10.5); Carbon Dioxide 25 mmol/L (22-29); Chloride 105 mmol/L (98-107); Globulin 2.7 g/dL (1.3-4.6); Glucose 103 mg/dL (65-115); Lipase 22 U/L (13-60); NT Pro B Type Natriuretic Pept 3300 pg/mL (0-450); Osmolality Calculated 295 mOsm/kg (285-295); Potassium 4.5 mmol/L (3.5-5.1); Sodium 140 mmol/L (136-145); Total Bilirubin 1.1 mg/dL (0.15-1.2); Total Protein 6.8 g/dL (6.6-8.7)
[2023-07-22] MEDS: FUROsemide 10 mg/mL SDV 4mL 40 MG IVP (12:16)
--- NOTE | 2023-07-22 12:54 | ECG_ITS ---
[facility] Test Date: 2023-07-22 Pat Name: Brian Chavez Department: Room: Gender: Male In Home Sales Consultant: : [id number] Requested By: Leora Sandoval Order Number: [id number] Ary MD: Raul Berg M.D. Measurements Intervals [place] Rate: 62 P: 0 AL: 0 QRS: 57 QRSD: 95 T: 72 QT: 392 QTc: 400 Interpretive Statements ATRIAL FIBRILLATION Compared to ECG 07/22/2023 10:13:24 No significant changes Electronically Signed On 07-22-2023 14:09:07 TRAINING DIRECTOR by Raul Berg M.D. [email or web address]
[2023-07-22 13:56] LABS: Troponin 5 2HR 19.23 ng/L (0-15)
[2023-07-22 13:58] LABS: Troponin 5 2HR Delta 1.23 ABS# (0-10)
== END 2023-07-22 14:41 | disposition home or self-care (01) ==
PROVIDERS: Emergency Provider Emergency Medicine; PCP Family Medicine
DX: R07.9 Chest pain, unspecified (principal); I50.9 Heart failure, unspecified; Z79.02 Long term (current) use of antithrombotics/antiplatelets; Z79.82 Long term (current) use of aspirin; Z79.01 Long term (current) use of anticoagulants; Z95.1 Presence of aortocoronary bypass graft
CPT/HCPCS: 36415; 71045; 80053; 83690; 83880; 84484; 85025; 85610; 93005; 96374; 99285; J1940

== ENCOUNTER 2023-08-30 09:02 | Emergency (ER) | payer MEDICARE, OTHER, SELFPAY ==
[2023-08-30 09:05] VITALS: BP 133/85; PULSE 61; RESP 14; TEMP 36.8; O2SAT 100; BMI 28.5
--- NOTE | 2023-08-30 09:05 | XRR_ITS ---
PROCEDURE INFORMATION: Exam: XR Chest Exam date and time: 08/30/2023 10:24 AM Age: 83 years old Clinical indication: Angina; Prior surgery; Surgery date: 1-6 months; Surgery type: Bypass, stent; Additional info: Cp TECHNIQUE: Imaging protocol: Radiologic exam of the chest. Views: 1 view. COMPARISON: CR XR chest 1V portable [id number] 07/22/2023 10:59 AM FINDINGS: Lungs: Unremarkable. No consolidation. Pleural spaces: Unremarkable. No pleural effusion. No pneumothorax. Heart/Mediastinum: The heart is not enlarged. An atrial appendage clip is present. Bones/joints: Median sternotomy. XR/XR chest 1V portable [id number] IMPRESSION: No acute abnormality.
--- NOTE | 2023-08-30 09:05 | ECG_ITS ---
[facility] Test Date: 2023-08-30 Pat Name: Brian Chavez Department: Room: Gender: Male Client Relations Representative: : 1940 Requested By: Leora Sandoval Order Number: [id number] Ary MD: Laura Brand M.D. Measurements Intervals [place] Rate: 67 P: 0 PA: 0 QRS: 35 QRSD: 96 T: 59 QT: 398 QTc: 423 Interpretive Statements ATRIAL FIBRILLATION MINIMAL ST DEPRESSION [0.025+ mV ST DEPRESSION] ABNORMAL RHYTHM ECG INTERPRETATION BASED ON A DEFAULT AGE OF 40 YEARS Compared to ECG 07/22/2023 12:56:57 ST (T wave) deviation now present Electronically Signed On 08-30-2023 18:43:57 FRUIT STUFFER by Laura Brand M.D. [id number]
--- NOTE | 2023-08-30 09:19 | ED_ITS ---
HPI - Chest Pain 2 General: Chief Complaint: Chest Pain Stated Complaint: chest pain Time Seen by Provider: 08/30/23 09:13 Source: patient Mode of arrival: ambulatory Limitations: no limitations History of Present Illness: 83-year-old male states that he has had chest pain since yesterday evening. He states been a constant pain he states pain starts in his upper abdomen and goes up to his throat is a sharp pain. Denies any nausea or vomiting denies any shortness of breath. Does have a history of coronary artery disease he denies any diaphoresis. Denies any worsening improving factors Associated symptoms: Deny abdominal pain, dyspnea, fever(s), nausea or vomiting Review of Systems 2 Const: Denies: fever(s), chills, body aches or change in appetite Eyes: Denies: blurry vision or eye discomfort ENMT: Denies: throat pain or dental pain Card: Reports: chest pain Resp: Denies: dyspnea GI: Denies: abdominal pain, nausea, vomiting or diarrhea : Denies: dysuria Musc: Denies: neck pain or back pain Skin/Breast: Denies: rash Neuro: Denies: headache(s) Physical Exam 2 Const: COMMON NORMALS: no acute distress, patient oriented x3 and healthy appearing HENMT: COMMON NORMALS: normocephalic and atraumatic HEAD & SCALP: n ormocephalic and atraumatic Eye: COMMON NORMALS: Equal, round and reactive pupils present and EOMs intact bilaterally PUPIL: Yes Equal, round and reactive pupils present Neck/C-Spine: COMMON NORMALS: full ROM and supple Chest: COMMONS NORMALS: normal inspection of the chest and normal palpation of entire chest wall Resp: COMMON NORMALS: normal respiratory effort, No retractions, No use of accessory muscles and clear to auscultation bilaterally AUSCULTATION: clear to auscultation bilaterally Cardio: COMMON NORMALS: regular rate, regular rhythm and No murmurs present (Cardio) RATE: regular rate RHYTHM: regular rhythm GI: COMMON NORMALS: Normal to inspection, nondistended, normoactive bowel sounds present, Soft to palpation, non-tender and no masses PALPATION: Yes Soft to palpation Extremity: COMMON NORMALS: normal to inspection and full ROM Neuro: COMMON NORMALS: patient oriented x3, moves all extremities and no focal motor deficits Psych: COMMON NORMALS: mental status grossly normal, Normal thought process present and cooperative THOUGHT PROCESS: Normal thought process present Skin: COMMON NORMALS: no rashes or lesions noted and no wounds GENERAL SKIN EXAM: no rashes or lesions noted Course 2 Vital Signs: Vital signs: Vital Signs Temperature 98.3 F 08/30/23 09:05 Pulse Rate 60 08/30/23 10:41 Respiratory Rate 17 08/30/23 13:14 Blood Pressure 130/75 08/30/23 10:41 Pulse Oximetry 95 08/30/23 13:14 Oxygen Delivery Me thod Room Air 08/30/23 09:05 MDM - Chest Pain Medical Decision Making Patient presents for chest pain CTA of his chest is normal troponins are normal as well no signs of acute coronary syndrome he is well-appearing here he is stable for discharge she is to follow-up with his tmr teacher along with his PCP and return if worsening he understands agrees to plan. Medical Records I reviewed the patient's medical records. Lab Data I reviewed the patient's lab results. 08/30/23 09:33 08/30/23 09:33 Radiology Impressions Chest X-Ray 08/30/23 09:05 IMPRESSION: No acute abnormality. Chest CTA 08/30/23 12:52 IMPRESSION: 1. No evidence of pulmonary embolus. 2. Small pleural effusions with mild compressive atelectasis in the lung bases. 3. Cardiomegaly. Status post coronary bypass surgery. 4. Cholelithiasis. COMMENTS: Consistent with the [employer]'s Incidental Findings Committee white paper (J Am Kennedi Radiol 2018): Any incidental renal lesion less than 1 cm or classified as too small to characterize, or any incidental cystic renal lesion characterized as simple-appearing, is likely benign. No follow-up imaging is recommended for these lesions per consensus recommendations based on imaging criteria. Laboratory Results WBC 9.93 10^3/uL (3.29-11.43) 08/30/23 09:33 RBC 3.14 10^6/uL (3.85-5.65) L 08/30/23 09:33 Hgb 10.40 g/dL (11.27-16.99) L 08/30/23 09:33 Hct 32.0 % (37-53) L 08/30/23 09:33 MCV 101.9 fl (82-101) H 08/30/23 09:33 MCH 33.1 pg (27-33) H 08/30/23 09:33 MCHC 32.5 g/dL (30-55) 08/30/23 09:33 RDW 15.7 % (12.1-15.1) H 08/30/23 09:33 Plt Count 216 10^3/cmm (157-399) 08/30/23 09:33 MPV 11.6 fL (7.4-10.4) H 08/30/23 09:33 Neut % (Auto) 62.5 % 08/30/23 09:33 Lymph % (Auto) 19.4 % 08/30/23 09:33 Clare % (Auto) 13.0 % 08/30/23 09:33 Eos % (Auto) 3.8 % 08/30/23 09:33 Baso % (Auto) 0.4 % 08/30/23 09:33 Neut # (Auto) 6.20 10^3/uL (1.8-7.7) 08/30/23 09:33 Lymph # (Auto) 1.9 10^3/uL (0.8-4.8) 08/30/23 09:33 Clare # (Auto) 1.3 10^3/uL (0.2-0.9) H 08/30/23 09:33 Eos # (Auto) 0.4 10^3/uL (0.0-0.8) 08/30/23 09:33 Baso # (Auto) 0.0 10^3/uL (0.0-0.1) 08/30/23 09:33 Nucleated RBC % (auto) 0 % 08/30/23 09:33 Nucleated RBCs # 0.0 /100WBC 08/30/23 09:33 Sodium 139 mmol/L (136-145) 08/30/23 09:33 Potassium 4.1 mmol/L (3.5-5.1) 08/30/23 09:33 Chloride 104 mmol/L (98-107) 08/30/23 09:33 Carbon Dioxide 26 mmol/L (22-29) 08/30/23 09:33 Anion Gap 13.1 (5-19) 08/30/23 09:33 BUN 26 mg/dL (8-23) H 08/30/23 09:33 Creatinine 1.4 mg/dL (0.7-1.2) H 08/30/23 09:33 GFR Calculation Not Reportable 08/30/23 09:33 Glucose 104 mg/dL (65-115) 08/30/23 09:33 Calculated Osmolality 293 mOsm/kg (285-295) 08/30/23 09:33 Calcium 8.7 mg/dL (8.5-10.5) 08/30/23 09:33 Total Bilirubin 0.6 mg/dL (0.15-1.2) 08/30/23 09:33 AST 25 U/L (0-40) 08/30/23 09:33 ALT 18 U/L (0-41) 08/30/23 09:33 Alkaline Phosphatase 75 U/L (40-130) 08/30/23 09:33 Troponin T Baseline 22 ng/L (0-15) H 08/30/23 09:33 Troponin T 120 Minute 18.88 ng/L (0-15) H 08/30/23 11:24 Delta Troponin T -3.12 ABS# (0-10) L 08/30/23 11:24 NT-Pro-B Natriuret Pep 2308 pg/mL (0-450) H 08/30/23 09:33 Total Protein 6.7 g/dL (6.6-8.7) 08/30/23 09:33 Albumin 3.9 g/dL (3.5-5.2) 08/30/23 09:33 Globulin 2.8 g/dL (1.3-4.6) 08/30/23 09:33 Lipase 22 U/L (13-60) 08/30/23 09:33 All radiology interpretation(s) finalized by discharge EKG Data EKG 1: I personally reviewed and interpreted this EKG as follows: EKG interpretation date: 08/30/23 EKG interpretation time: 09:08 Interpretation: afib hr [address] or t wave abnormalities qrs 96 qtc 414 EKG 2: I personally reviewed and interpreted this EKG as follows: EKG interpretation date: 08/30/23 EKG interpretation time: 11:03 Interpretation: afib hr [address] or t wave abnormalities qrs 95 qtc 422 Discharge Plan Discharge Patient Disposition: Home Clinical Impression: Chest pain Qualifiers: Chest pain type: unspecified Qualified Code(s): R07.9 - Chest pain, unspecified Condition: Stable Prescriptions: No Action atorvastatin 80 mg tablet 80 mg PO BEDTIME tizanidine 2 mg tablet 2 mg PO Q6H PRN (Reason: Muscle Spasm) potassium chloride 10 mEq tablet extended release 20 meq PO QAM clopidogrel 75 mg tablet 75 mg PO BEDTIME aspirin [Aspir-81] 81 mg Tablet,Delayed Release (Dr/Ec) 81 mg PO QAM acetaminophen [Tylenol Ex Str Rapid Release] 500 mg Tablet 1,000 mg PO Q6H PRN (Reason: Pain) cetirizine 10 mg Tablet 10 mg PO QAM ondansetron 4 mg tablet,disintegrating 4 mg PO QAM terazosin 10 mg capsule 10 mg PO DAILY Centrum Men 8 mg iron- 200 mcg-600 mcg Tablet 1 tab PO QAM PreserVision AREDS-2 250-90-40-1 mg Capsule 1 cap PO DAILY diltiazem HCl 360 mg capsule,extended release 24hr 360 mg PO BEDTIME tramadol 50 mg tablet 50 mg PO Q8H PRN (Reason: Pain) dorzolamide-timolol 22.3-6.8 mg/mL drops 1 drp ophthalmic (eye) BID Eliquis 5 mg tablet 5 mg PO BID latanoprost 0.005 % drops 1 drp ophthalmic (eye) BEDTIME furosemide 40 mg tablet 40 mg PO DAILY isosorbide mononitrate 30 mg tablet extended release 24 hr 30 mg PO QAM omeprazole 40 mg capsule,delayed release(DR/EC) 40 mg PO DAILY nitroglycerin 0.4 mg tablet, sublingual 0.4 mg sublingual PRN PRN (Reason: Chest Pain) metoprolol succinate 25 mg tablet extended release 24 hr 25 mg PO DAILY Discharge Orders: Discharge ED (Routine); Ordered 08/30/23 Ordered By: Leora Sandoval Referrals: Eddie Colon MD [Primary Care Provider] - 1-3 days Discharge Diet: Advance as tolerated Discharge Activity: Resume usual activity Patient Instructions: Chest Pain (ED) Coding Level of Care Code ED Rework Machine Operator for Ximena Cook
[2023-08-30] MEDS: lidocaine 2% viscous 15 ML, aluminum-mag hydrox-simethicon 30 ML, sucralfate oral liq 1 GM PO (09:30)
[2023-08-30] MEDS: aspirin 81 mg Chew Tablet 324 MG PO (09:30)
[2023-08-30 09:41] VITALS: BP 121/77; PULSE 65; RESP 19; O2SAT 92
[2023-08-30 09:42] LABS: Basophils % 0.4 %; Eosinophils # 0.4 10^3/uL (0.0-0.8); Eosinophils % 3.8 %; Lymphocytes # 1.9 10^3/uL (0.8-4.8); Lymphocytes % 19.4 %; Mean Corpuscular HGB Conc 32.5 g/dL (30-55); Mean Corpuscular Hemoglobin 33.1 pg (27-33); Mean Corpuscular Volume 101.9 fl (82-101); Mean Platelet Volume 11.6 fL (7.4-10.4); Monocytes # 1.3 10^3/uL (0.2-0.9); Neutrophils % 62.5 %; Nucleated Red Blood Cells % 0 %; Platelet Count 216 10^3/cmm (157-399); Red Blood Count 3.14 10^6/uL (3.85-5.65); Red Cell Distribution Width 15.7 % (12.1-15.1); White Blood Count 9.93 10^3/uL (3.29-11.43)
[2023-08-30 10:11] VITALS: BP 121/64; PULSE 61; RESP 22; O2SAT 95
[2023-08-30 10:22] LABS: Troponin(5th) Baseline 22 ng/L (0-15)
[2023-08-30 10:30] LABS: Alanine Aminotransferase 18 U/L (0-41); Albumin Level 3.9 g/dL (3.5-5.2); Alkaline Phosphatase 75 U/L (40-130); Anion Gap 13.1 (5-19); Aspartate Amino Transferase 25 U/L (0-40); Blood Urea Nitrogen 26 mg/dL (8-23); Calcium 8.7 mg/dL (8.5-10.5); Carbon Dioxide 26 mmol/L (22-29); Chloride 104 mmol/L (98-107); Globulin 2.8 g/dL (1.3-4.6); Glucose 104 mg/dL (65-115); Lipase 22 U/L (13-60); NT Pro B Type Natriuretic Pept 2308 pg/mL (0-450); Osmolality Calculated 293 mOsm/kg (285-295); Potassium 4.1 mmol/L (3.5-5.1); Sodium 139 mmol/L (136-145); Total Bilirubin 0.6 mg/dL (0.15-1.2); Total Protein 6.7 g/dL (6.6-8.7)
[2023-08-30 10:41] VITALS: BP 130/75; PULSE 60; RESP 18; O2SAT 93
--- NOTE | 2023-08-30 11:05 | ECG_ITS ---
[facility] Test Date: 2023-08-30 Pat Name: Brian Chavez Department: Room: Gender: Male Veterinarian Assistant: : 1940 Requested By: Leora Sandoval Order Number: [id number] Ary MD: Laura Brand M.D. Measurements Intervals [place] Rate: 58 P: 0 OK: 0 QRS: 24 QRSD: 95 T: 56 QT: 424 QTc: 419 Interpretive Statements ATRIAL FIBRILLATION WITH SLOW VENTRICULAR RESPONSE ABNORMAL RHYTHM ECG Compared to ECG 08/30/2023 09:08:39 ST (T wave) deviation no longer present Electronically Signed On 08-30-2023 19:00:40 BLADE BONER by Laura Brand M.D. [id number]
[2023-08-30 12:22] LABS: Troponin 5 2HR 18.88 ng/L (0-15)
[2023-08-30 12:47] LABS: Troponin 5 2HR Delta -3.12 ABS# (0-10)
--- NOTE | 2023-08-30 12:52 | CTR_ITS ---
PROCEDURE INFORMATION: Exam: CTA Chest With Contrast Exam date and time: 08/30/2023 1:40 PM Age: 83 years old Clinical indication: Pain; Angina pectoris; Prior surgery; Surgery date: 6+ months; Surgery type: Heart; Additional info: Cp TECHNIQUE: Imaging protocol: Computed tomographic angiography of the chest with contrast. Exam focused on the arteries. 3D rendering (Not supervised by radiologist): MIP and/or 3D reconstructed images were created by the technologist. Radiation optimization: All CT scans at this facility use at least one of these dose optimization techniques: automated exposure control; mA and/or kV adjustment per patient size (includes targeted exams where dose is matched to clinical indication); or iterative reconstruction. Contrast material: OMNI 350; Contrast volume: 78 ml; Contrast route: INTRAVENOUS (IV); REPORTING DATA: Count of CT and Cardiac NM exams in prior 12 months: This patient has received 0 known CTs and 0 known cardiac nuclear medicine studies in the 12 months prior to the current study. COMPARISON: CR (CHEST, ) 08/30/2023 10:24 AM RADIATION DOSE METRICS: Total DLP (mGy-cm): 464.69 FINDINGS: Pulmonary arteries: Normal. No pulmonary emboli. Aorta: Mild calcification of the thoracic aorta. No thoracic aortic aneurysm. Lungs: There are few tiny benign calcified pulmonary granulomas. Mild compressive atelectasis in the lung bases.. Pleural spaces: Small bilateral pleural effusions. No pneumothorax. Heart: Cardiomegaly. Status post coronary artery bypass surgery. The coronary arteries are calcified. Lymph nodes: There are multiple nonspecific mildly enlarged mediastinal lymph nodes. There are multiple benign calcified mediastinal and pulmonary hilar lymph nodes. Gallbladder and bile ducts: Cholelithiasis. Kidneys and ureters: Small benign-appearing cysts are present in the left kidney. There is a tiny nonobstructing left renal calcification. Bones/joints: Chronic degenerative changes are present in the spine. No acute bony abnormality. Median sternotomy. Soft tissues: Unremarkable. CT/CT angio chest PE protcl [id number] IMPRESSION: 1. No evidence of pulmonary embolus. 2. Small pleural effusions with mild compressive atelectasis in the lung bases. 3. Cardiomegaly. Status post coronary bypass surgery. 4. Cholelithiasis. COMMENTS: Consistent with the [employer]'s Incidental Findings Committee white paper (J Am Kennedi Radiol 2018): Any incidental renal lesion less than 1 cm or classified as too small to characterize, or any incidental cystic renal lesion characterized as simple-appearing, is likely benign. No follow-up imaging is recommended for these lesions per consensus recommendations based on imaging criteria.
[2023-08-30 13:14] VITALS: RESP 17; O2SAT 95
[2023-08-30] MEDS: morphine 4 mg/mL SDV 1 mL IVP (13:14)
[2023-08-30] MEDS: ondansetron 2 mg/ML SDV 2 mL 4 MG IVP (13:15)
[2023-08-30] MEDS: iohexol 350 mg/mL 500 mL Btl (per mL) IV (13:47)
== END 2023-08-30 14:40 | disposition home or self-care (01) ==
PROVIDERS: Emergency Provider Emergency Medicine; PCP Family Medicine
DX: R07.9 Chest pain, unspecified (principal); I51.7 Cardiomegaly; K80.20 Calculus of gallbladder without cholecystitis without obstruction; Z79.02 Long term (current) use of antithrombotics/antiplatelets; Z79.82 Long term (current) use of aspirin; Z79.01 Long term (current) use of anticoagulants
CPT/HCPCS: 36415; 71045; 71275; 80053; 83690; 83880; 84484; 85025; 93005; 96374; 96375; 99285; J2270; J2405; Q9967